=== PATIENT | female | born 1990 | race Caucasian/White ===

== ENCOUNTER 2016-11-20 08:05 | Outpatient (CLI) | payer OTHER | END 2016-11-20 08:40 | disposition home or self-care (01) | LOC: FBPOP 08:05 | PROVIDERS: ATTEND Obstetrics & Gynecology | DX: O62.2 Other uterine inertia (principal); Z3A.37 37 weeks gestation of pregnancy | CPT/HCPCS: 59025; G0463; 99213 ==

== ENCOUNTER 2016-11-20 19:18 | Outpatient (CLI) | payer OTHER ==
[2016-11-20 19:57] VITALS: BP 119/75; PULSE 90; RESP 16; TEMP 97; BMI 35.2
== END 2016-11-20 20:40 | disposition home or self-care (01) ==
LOC: FBPOP 19:18
PROVIDERS: ATTEND Obstetrics & Gynecology
DX: O62.2 Other uterine inertia (principal); Z3A.37 37 weeks gestation of pregnancy
CPT/HCPCS: 59025; G0463; 99213

== ENCOUNTER 2016-12-05 23:20 | Inpatient (IN) | payer OTHER ==
[2016-12-06] MEDS: LACTATED RINGERS 1,000 ML IV SCH ×3 (00:05→03:46)
[2016-12-06] MEDS ORDERED: TERBUTALINE 1 MG/ML VIAL SQ PRN (00:06)
[2016-12-06] MEDS ORDERED: LIDOCAINE 1% (PF) 10 MG/ML (30 ML SDV) SQ PRN (00:06)
[2016-12-06] MEDS ORDERED: METHYLERGONOVINE 0.2 MG/ML 1 ML AMP IM PRN (00:06)
[2016-12-06] MEDS ORDERED: CARBOPROST TROMETHAMINE 250 MCG/ML 1 ML AMP IM PRN (00:06)
[2016-12-06] MEDS ORDERED: OXYTOCIN 10 UNIT/ML 1 ML VIAL IM PRN (00:06)
[2016-12-06] MEDS ORDERED: BUTORPHANOL 1 MG/ML 1 ML VIAL IV PRN (00:08)
[2016-12-06 00:28] VITALS: BMI 35.5
[2016-12-06 00:35] LABS: Basophils % (A) 0 %; CH 31.1; CHCM 34.7; Eosinophils % (A) 0 %; HCT 38.5 % (34.0-46.0); HDW 2.92; HGB 12.7 gm/dL (11.4-16.0); Luc # (Auto) 0.13; Luc % (Auto) 1; Lymphocytes # (A) 2.8 k/uL (1.0-4.8); Lymphocytes % (A) 28 %; MCH 29.6 pg (25.0-35.0); MCHC 32.9 g/dL (31.0-37.0); Mean Platelet Volume 9.4; Monocytes # (A) 0.5 k/uL (0-1.0); Monocytes % (A) 5 %; Neutrophils # (A) 6.4 k/uL (1.3-7.7); Neutrophils % (A) 65 %; RBC 4.28 m/uL (3.80-5.40); RDW 13.9 % (11.5-15.5); WBC 9.9 k/uL (3.8-10.6); WBC (Perox) 10.44
[2016-12-06] MEDS ORDERED: BUPIVACAINE (PF) 0.25% 30 ML VIAL ONE (02:45)
[2016-12-06] MEDS ORDERED: fentaNYL (PF) 50 MCG/ML 5 ML AMP ONE (02:45)
[2016-12-06] MEDS ORDERED: SODIUM CHLORIDE 0.9% 100 ML BAG ONE (02:45)
[2016-12-06] MEDS ORDERED: BUPIVACAINE (PF) 0.25% 25 ML, fentaNYL (PF) 200 MCG in SODIUM CHLORIDE 0.9% 71 ML EPIDURAL ONE (03:03)
[2016-12-06] MEDS ORDERED: CITRIC ACID-SODIUM CITRATE 15 ML CUP PO ONE (03:22)
[2016-12-06] MEDS: OXYTOCIN 30 UNITS/500 ML NS 30 UNIT in SALINE 1 500ML.BAG IV SCH ×3 (03:26→20:35)
[2016-12-06] MEDS ORDERED: ONDANSETRON 4 MG/2 ML VIAL IVP PRN (07:08)
--- NOTE | 2016-12-06 07:09 | P.HPOB ---
History of Present Illness H&P Date: 12/06/16 This is a 26-year-old white female 3 para 2001 EDC 12/09/2016 at 39-4/7 weeks' gestation. Patient was initially scheduled for induction but presented through the night with strong regular uterine contractions. It was felt that she was in early labor and therefore she was admitted. She denied fluid leakage or vaginal bleeding. Fetus has been active throughout the . history: Blood type A positive, rubella status immune. Group B strep cultures negative. Gonorrhea and chlamydia cultures, HIV testing, urine culture , VDRL, hepatitis B surface antigen, HIV testing all negative. Rubella immune. Past medical history is significant for anxiety, bulging L4-L5 disc, and unspecified abdominal pain in multiple sites as of 2012. Past surgical history appendectomy 2008, diagnostic laparoscopy, foot surgery, hernia repair 2007, ovarian cystectomy 2012. ALLERGIES include amoxicillin to which reports hives, seasonal ALLERGIES as well. Family history significant for alcoholism and endometriosis as well as leukemia. Social history patient is not , she denies tobacco alcohol or drug use. On exam this is a pleasant white female, 5 foot 4 inches, 207 pounds, vital signs are stable and she is afebrile, admitting blood pressure 133/69. General physical exam is within normal limits. Cervix at time of this dictation is 4 cm dilated, 70-80% effaced, -2 station, vertex presentation, soft and anterior. Artificial amniorrhexis reveals clear fluid. heart tones in the 140s with frequent accelerations consistent with reactive NST. Impression: 39-4/7 weeks intrauterine , early spontaneous labor. Plan: Close maternal and surveillance. Oxytocin augmentation per hospital protocol. Anticipate normal spontaneous vaginal delivery. Review of Systems Negative except as in HPI Past Medical History Past Medical History: No Reported History History of Any Multi-Drug Resistant Organisms: None Reported Past Surgical History: Appendectomy, Hernia Repair Past Anesthesia/Blood Transfusion Reactions: No Reported Reaction Past Psychological History: Anxiety Smoking Status: Never smoker Past Alcohol Use History: None Reported Past Drug Use History: None Reported - Past Family History Mother Family Medical History: Liver Disease, Renal Disease Medications and Allergies Home Medications Medication Instructions Recorded Confirmed Type Pnv with Ca,No.72/Iron/FA 1 tab PO HS 10/26/16 12/05/16 History [ Plus Tablet] Allergies Allergy/AdvReac Type Severity Reaction Status Date / Time amoxicillin Allergy Rash/Hives Verified 12/05/16 23:25 Exam - Vital Signs Vital signs: Vital Signs Temp Pulse Resp BP Pulse Ox 12/06/16 00:06 96.7 F L 90 18 133/69 99 Intake and Output 12/05/16 12/06/16 12/06/16 22:59 06:59 14:59 Intake Total 1000 Output Total 200 Balance 800 Intake: Intake, IV Titration 1000 Amount Lactated Ringers 1,000 ml 1000 @ 125 mls/hr IV .Q8H [facility], [facility] Rx#:[id number] Output: Urine 200 Straight 200 Other: Weight 93.894 kg See dictation, please Results Result Diagrams: 12/06/16 00:00 Assessment and Plan Plan: Oxytocin augmentation per hospital protocol. Close maternal and surveillance. Anticipate normal spontaneous vaginal delivery. Time with Patient: Less than 30
[2016-12-06] MEDS ORDERED: BENZOCAINE/MENTHOL SPRAY 1 GM/SPRAY AEROSOL TOPICAL PRN (11:02)
[2016-12-06] MEDS ORDERED: diphenhydrAMINE 50 MG/ML 1 ML VIAL IVP PRN ×2 (11:02)
[2016-12-06] MEDS ORDERED: diphenhydrAMINE 25 MG CAP PO PRN (11:02)
[2016-12-06] MEDS ORDERED: diphenhydrAMINE ELIXIR 25 MG/10 ML CUP PO PRN (11:02)
[2016-12-06] MEDS ORDERED: WITCH HAZEL 1 EACH MED..PAD TOPICAL PRN (11:02)
[2016-12-06] MEDS ORDERED: diphenhydrAMINE 50 MG CAP PO PRN (11:02)
[2016-12-06] MEDS ORDERED: ZOLPIDEM 5 MG TAB PO PRN (11:02)
[2016-12-06] MEDS ORDERED: HYDROCORTISONE 2.5% RECTAL CREAM 30 GM TUBE RECTAL PRN (11:02)
[2016-12-06] MEDS ORDERED: SIMETHICONE 80 MG CHEWABLE PO PRN (11:02)
[2016-12-06] MEDS ORDERED: ACETAMINOPHEN TAB 325 MG TAB PO PRN (11:02)
[2016-12-06] MEDS ORDERED: LANOLIN CREAM 5 GM TUBE TOPICAL PRN (11:02)
--- NOTE | 2016-12-06 11:02 | P.PROBDLV ---
Vaginal Delivery Note - . Vaginal Delivery Note: This is a 26-year-old white female 3 para 2001 EDC 12/09/2016 at 39-4/7 weeks' gestation. Patient was initially scheduled for induction but presented to labor and delivery in early spontaneous active labor. Artificial amniorrhexis revealed clear fluid. Oxytocin augmentation was started and titrated per hospital protocol after the administration of an epidural per the patient request. was essentially unremarkable, group B strep cultures negative, blood type A+, rubella status immune. Urine physical for details. Patient progressed well through the first stage of labor was judged to be completely dilated with a strong urge to push. The perineal body was prepped and draped in usual sterile fashion. With excellent maternal expulsive efforts the head delivered occiput anterior and the fetus restituted accordingly. There was no nuchal cord noted. The left or anterior shoulder was gently delivered from underneath the pubic symphysis at which time the oropharynx, nasopharynx and external nares were all bulb suctioned on the perineal body. Patient was officially delivered of a liveborn female at 1048 hrs. Umbilical cord was doubly clamped and ligated, she was handed to waiting nurses for evaluation where scores of 9 and 9 at one and 5 minutes respectively were given. Spontaneously, it was inspected and noted to be intact with trivascular cord at 1050 hrs. Inspection of the cervix, vagina, perineum, periurethral, and perirectal areas revealed no lacerations and no defects. No suture material was needed. Fundus was firm and in the midline, symmetric and 18 week size upon completion of delivery. Total estimated blood loss 250 mL's. Infant weighed 6 lbs. 8 oz. or 2945 g. Patient and family were allowed to begin the bonding experience in the LDR. Complications: None.
[2016-12-06] MEDS: IBUPROFEN 600 MG TAB PO PRN (17:45)
[2016-12-06] MEDS: Acetaminophen-Codeine 300-30mg TAB PO PRN (19:36)
[2016-12-06] MEDS: SENNOSIDES-DOCUSATE SODIUM 1 EACH TAB PO SCH (19:37)
[2016-12-07] MEDS: IBUPROFEN 600 MG TAB PO PRN ×2 (00:05→08:25)
[2016-12-07] MEDS: Acetaminophen-Codeine 300-30mg TAB PO PRN (03:21)
--- NOTE | 2016-12-07 07:20 | P.DS ---
Providers Date of admission: 12/05/16 23:47 Expected date of discharge: 12/07/16 Attending physician: Kasey Leung Primary care physician[facility] Course: This is a 26-year-old white female 3 para 2002 EDC 12/09/2016 at 39-4/7 weeks' gestation. Patient presented in active spontaneous labor, unremarkable, group B strep cultures negative, rubella status immune, blood type A+. Please see my dictated history and physical for details. Artificial amniorrhexis revealed clear fluid. Epidural was placed per her request. She went on to deliver a liveborn female infant with scores of 9 and 9 at one and 5 minutes respectively. Infant weighed 2945 g or 6 lbs. 8 oz. Estimated blood loss was 250 mL's. Please see my dictated delivery note for details. This morning the patient is doing well. She is voiding, ambulating, passing flatus without difficulty. Vital signs are stable and she is afebrile. She is complaining of a sore area in her back where the epidural was placed along with a tingling pain sensation in the right foot. On examination the foot as well as the back appears within normal limits. There is no deficit to strength or balance. I discussed with her the inflammatory changes that can occur with an epidural placement, I have discussed this with the anesthesia staff as well who will see the patient for any further recommendations. At this time I am recommending ibuprofen products. Breasts are not engorged. Extremities are otherwise negative. Fundus is firm and in the midline, symmetric and 18 week size. Perineal body is intact. Minimal to moderate lochia rubra is appreciated. Patient is being discharged home this morning in good condition. She will follow-up with me in the office in 6 weeks. I have reminded her no intercourse, tampons or douching. We have discussed briefly her options for contraception and we will discuss this further in the office. She will continue taking her vitamin daily, and use Advil or Aleve [id number] as needed for pain. She may also use ibuprofen, 200 mg pills, 3 every 6 hours as needed. I've asked her to call me with any fevers shakes or chills, foul smelling or copious lochia, the passage of large blood clots, with any pain or issues not alleviated by over-the- counter products, or indeed with any other concerns. Patient Condition at Discharge: Good Plan - Discharge Summary Discharge Medication List Pnv with Ca,No.72/Iron/FA [ Plus Tablet] 1 tab PO HS 10/26/16 [History] Follow up Appointment(s)/Referral(s): Kasey Leung MD [Primary Care Provider] - 6 Weeks Discharge Disposition: HOME SELF-CARE
[2016-12-07 09:24] VITALS: BP 135/89; PULSE 74; RESP 20; TEMP 97.9
[2016-12-07] MEDS: SENNOSIDES-DOCUSATE SODIUM 1 EACH TAB PO SCH (09:28)
--- NOTE | 2016-12-07 10:15 | P.PN ---
Progress Note - Text Patient had an epidural for normal vaginal delivery 2 days ago and now she is complaining of slight back pain and it is radiating to right leg up to the toes. Patient does not report any weakness in the legs and is able to walk. This pain started since yesterday and it is 3-4 out of 10 in intensity and is better when she takes pain medications. On examination no neurological deficits found. Patient is able to walk and no muscle weakness noted. Impression: Probably transient radiculopathy from epidural catheter. Patient is reassured that the symptoms should subside within the next week or so. Meanwhile she was advised to take some nonsteroidal anti-inflammatory drugs like Motrin or Aleve for next 2-3 days. If symptoms get worse or she develops weakness she is advised to come back and see us.
== END 2016-12-07 15:15 | disposition home or self-care (01) | DRG 775 ==
LOC: FBPOP 23:20 → 4FBP 23:47
PROVIDERS: ADMIT Obstetrics & Gynecology; ATTEND Obstetrics & Gynecology
PROC: 10E0XZZ Delivery of Products of Conception, External Approach (ICD-10-PCS; principal; 2016-12-06)
PROC: 10907ZC Drainage of Amniotic Fluid, Therapeutic from Products of Conception, Via Natural or Artificial Opening (ICD-10-PCS; 2016-12-06)
PROC: 00HU33Z Insertion of Infusion Device into Spinal Canal, Percutaneous Approach (ICD-10-PCS; 2016-12-06)
DX: O99.344 Other mental disorders complicating childbirth (principal); F41.9 Anxiety disorder, unspecified; O99.89 Other specified diseases and conditions complicating pregnancy, childbirth and the puerperium; M51.26 Other intervertebral disc displacement, lumbar region; M54.10 Radiculopathy, site unspecified; J30.2 Other seasonal allergic rhinitis; T40.2X5A Adverse effect of other opioids, initial encounter; Z37.0 Single live birth; Z3A.39 39 weeks gestation of pregnancy; Y92.239 Unspecified place in hospital as the place of occurrence of the external cause
CPT/HCPCS: 59025; 85025; 88307; 99213

== ENCOUNTER → 2018-08-22 | Outpatient (CLI) | payer OTHER ==
--- NOTE | 2018-08-22 17:15 | MR ---
MR left foot HISTORY: Trauma, pain Multiplanar multisequence imaging obtained through the left foot. Plain films unavailable for correlation. There is no bone marrow signal abnormality suggesting bone contusion. Joint spaces and alignment are maintained. Small ankle joint effusion is present. Achilles tendon, plantar aponeurosis are intact. A rticular cartilage signal is maintained. Flexor and extensor tendons are intact. The level of the proximal fifth metatarsal there is some local fluid signal present. The peroneus eliz vis insertion show some increase signal and thickening. Peroneal longus tendon shows fluid signal at the level of its insertion which could be due to small ganglion cyst or partial tear. IMPRESSION: Findings suggest partial tear, tendinosis at the insertion of the peroneal brevis tendon. Findings at the level of the insertion of the peroneal longus tendon could be due to ganglion cyst o r partial tear.
== END | disposition home or self-care (01) ==
LOC: RADMRIMAIN 11:15
PROVIDERS: ATTEND Pediatrics
DX: M79.672 Pain in left foot (principal)

== ENCOUNTER → 2018-09-09 | Outpatient (CLI) | payer OTHER | END | disposition home or self-care (01) | LOC: RADUSWWP 08:56 | PROVIDERS: ATTEND Podiatrist | DX: Z53.9 Procedure and treatment not carried out, unspecified reason (principal) ==

== ENCOUNTER → 2018-09-24 | Outpatient (CLI) | payer OTHER ==
[2018-09-24 11:25] LABS: HCT 41.7 % (34.0-46.0); HGB 13.6 gm/dL (11.4-16.0); MCH 29.4 pg (25.0-35.0); MCHC 32.6 g/dL (31.0-37.0); MCV 90.2 fL (80.0-100.0); Mean Platelet Volume 7.6; Platelet Count 217 k/uL (150-450); RBC 4.63 m/uL (3.80-5.40); RDW 12.3 % (11.5-15.5); WBC 4.2 k/uL (3.8-10.6)
[2018-09-24 12:33] LABS: Erythrocyte Sedimentation Rate 3 mm/hr (0-20)
[2018-09-24 17:58] LABS: Rheumatoid Factor <4 IU/mL (0-15); Streptolysin O Ab(ASO) 269 IU/mL (0-200)
[2018-09-24 18:14] LABS: C Reactive Protein <0.4 mg/dL (0.0-0.8)
[2018-09-25 11:06] LABS: HLA B27 NEGATIVE
== END | disposition home or self-care (01) ==
LOC: LABWHC1 10:26
PROVIDERS: ATTEND Orthopaedic Surgery
DX: M76.72 Peroneal tendinitis, left leg (principal); M25.572 Pain in left ankle and joints of left foot
CPT/HCPCS: 36415; 84443; 85027; 85652; 86038; 86060; 86140; 86431; 86618; 86812

== ENCOUNTER → 2019-01-28 | Outpatient (CLI) | payer OTHER ==
--- NOTE | 2019-01-28 14:26 | CT ---
EXAMINATION TYPE: CT chest wo con DATE OF EXAM: 01/28/2019 COMPARISON: None HISTORY: Shortness of breath CT DLP: 483 mGycm. Automated Exposure Control for Dose Reduction was Utilized. TECHNIQUE: CT scan of the thorax is performed without IV contrast. FINDINGS: LUNGS: The lungs are grossly clear, there is no concerning parenchymal mass or nodule identified. T here is no pleural effusion or pneumothorax seen. The tracheobronchial tree is patent. Calcified nod ule left upper lobe likely related to tiny granuloma. Axial image 33 there is a vague 4 mm nodule. MEDIASTINUM: Lack of IV contrast is noted to limit evaluation for mediastinal and especially hilar ad enopathy. There are no definitive greater than 1 cm hilar or mediastinal lymph nodes. No cardiomega ly or pericardial effusion is seen. OTHER: Curvature of the spine noted. Osseous structures intact. IMPRESSION: 1. No evidence of acute process. There is a 4 mm nodule within the right lower lobe which is vague an d likely benign. Suspect additional calcified nodule in the left lung. Recommend 6 month follow-up CT to confirm stability.
== END | disposition home or self-care (01) ==
LOC: RADCTMAIN 13:32
PROVIDERS: ATTEND Pediatrics
DX: R91.1 Solitary pulmonary nodule (principal)
CPT/HCPCS: 71250

== ENCOUNTER → 2019-03-11 | Outpatient (CLI) | payer OTHER | END | disposition home or self-care (01) | LOC: CPPFTMAIN 13:31 | PROVIDERS: ATTEND Pediatrics | DX: R06.02 Shortness of breath (principal) | CPT/HCPCS: 94060; 94726; 94729 ==

== ENCOUNTER → 2019-04-18 | Outpatient (CLI) | payer OTHER ==
[2019-04-18 19:39] LABS: Cat Epith & Dander IgE <0.10 kU/L; Dermato. farinae IgE <0.10 kU/L
[2019-04-18 19:40] LABS: Dog Dander IgE <0.10 kU/L
[2019-04-18 19:41] LABS: Alternaria alternata IgE <0.10 kU/L; Birch IgE <0.10 kU/L; Cockroach IgE <0.10 kU/L; Elm IgE <0.10 kU/L; Maple (Box Elder) IgE <0.10 kU/L; Oak IgE <0.10 kU/L
[2019-04-18 19:42] LABS: Ragweed,Common IgE <0.10 kU/L
[2019-04-18 19:44] LABS: Egg White IgE <0.10 kU/L; Red Top (Bentgrass) IgE <0.10 kU/L
[2019-04-18 19:49] LABS: Codfish IgE <0.10 kU/L
[2019-04-18 19:50] LABS: Peanut IgE <0.10 kU/L; Shrimp IgE <0.10 kU/L; Soybean IgE <0.10 kU/L
[2019-04-18 19:52] LABS: Clam IgE <0.10 kU/L; Scallop IgE <0.10 kU/L; Walnut IgE (Food) <0.10 kU/L
[2019-04-18 20:05] LABS: Immunoglobulin E 5.19 IU/mL (0.00-114.00); Immunoglobulin E 5.65 IU/mL (0.00-114.00)
== END ==
LOC: LABWHC1 12:17
PROVIDERS: ATTEND Internal Medicine Critical Care Medicine
DX: R06.00 Dyspnea, unspecified (principal); R05 Cough; R07.89 Other chest pain
CPT/HCPCS: 36415; 82785; 86003

== ENCOUNTER → 2019-06-30 | Outpatient (CLI) | payer OTHER ==
--- NOTE | 2019-06-30 08:47 | US ---
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 Bruising easily EXAM MEASUREMENTS: Liver Length: 13.8 cm Gallbladder Wall: 0.1 cm CBD: 0.4 cm Spleen: 10.9 cm Right Kidney: 9.6 x 4.8 x 4.5 cm Left Kidney: 10.3 x 5.1 x 4.2 cm Pancreas: Tail obscured by overlying bowel gas, visualized portions wnl Liver: wnl Gallbladder: wnl Evidence for sonographic Hernandez's sign: No CBD: wnl Spleen: wnl Right Kidney: No hydronephrosis or masses seen Left Kidney: No hydronephrosis or masses seen Upper IVC: wnl Abd Aorta: wnl The liver is homogenous. The intrahepatic portion of the IVC and proximal abdominal aorta are within normal limits. There is no evidence of cholelithiasis. Common bile duct is unremarkable. The visu alized portions of the pancreas are homogenous. The spleen is unremarkable. Kidneys are symmetric a nd free of hydronephrosis. No renal lesions are seen. IMPRESSION: No distinct abnormality appreciated.
== END | disposition home or self-care (01) ==
LOC: RADUSWWP 08:10
PROVIDERS: ATTEND Pediatrics
DX: D69.3 Immune thrombocytopenic purpura (principal)
CPT/HCPCS: 76700

== ENCOUNTER → 2019-08-19 | Outpatient (CLI) | payer OTHER ==
--- NOTE | 2019-08-19 10:54 | XR ---
EXAMINATION TYPE: XR tibia fibula LT DATE OF EXAM: 08/19/2019 COMPARISON: None HISTORY: Swelling of lower extremity TECHNIQUE: Left tibia and fibula is examined in 2 projections FINDINGS: No acute fractures are evident. Soft tissues are normal. Joint spaces appear preserved. Follow-up exams can be performed 7-10 days from acute trauma for continued pain. IMPRESSION: 1. Normal 2 view left tibia and fibula
== END | disposition home or self-care (01) ==
LOC: RADXRMAIN 10:04
PROVIDERS: ATTEND Internal Medicine Critical Care Medicine
DX: R22.42 Localized swelling, mass and lump, left lower limb (principal)

== ENCOUNTER → 2019-08-19 | Outpatient (CLI) | payer OTHER ==
--- NOTE | 2019-08-19 11:32 | US ---
EXAMINATION TYPE: US venous doppler duplex LE LT DATE OF EXAM: 08/19/2019 10:39 AM COMPARISON: NONE CLINICAL HISTORY: R22.42 Localized swelling, mass and lump. Lump edema SIDE PERFORMED: Left TECHNIQUE: The lower extremity deep venous system is examined utilizing real time linear array sonog amadeo with graded compression, doppler sonography and color-flow sonography. VESSELS IMAGED: External Iliac Vein (EIV) Common Femoral Vein Deep Femoral Vein Greater Saphenous Vein * Femoral Vein Popliteal Vein Small Saphenous Vein * Proximal Calf Veins (* superficial vessels Left Leg: Negative for DVT IMPRESSION: 1. Left lower extremity ultrasound negative for deep venous thrombosis.
== END | disposition home or self-care (01) ==
LOC: RADUSWWP 10:37
PROVIDERS: ATTEND Internal Medicine Critical Care Medicine
DX: R22.42 Localized swelling, mass and lump, left lower limb (principal); Z88.0 Allergy status to penicillin

== ENCOUNTER 2019-10-29 21:14 | Emergency (ER) | payer OTHER ==
[2019-10-29 21:27] VITALS: BP 130/75; PULSE 90; RESP 18; TEMP 98.5
[2019-10-29] MEDS ORDERED: MUPIROCIN 2% OINT 22 GM TUBE TOPICAL STA (22:00)
[2019-10-29] MEDS ORDERED: ACET/COD 300 MG/30 MG STARTER PACK 6 TAB BTL PO STA (22:00)
[2019-10-29] MEDS ORDERED: IBUPROFEN 600 MG STARTER PACK 4 TAB BTL PO STA (22:00)
--- NOTE | 2019-10-29 22:03 | ED ---
Skin/Abscess/FB HPI - General Chief complaint: Skin/Abscess/Foreign Body Stated complaint: L Arm swelling Time Seen by Provider: 10/29/19 21:28 Source: patient Mode of arrival: ambulatory Limitations: no limitations - History of Present Illness Initial comments: 29-year-old female patient presents to the emergency department today for evaluation of swelling, pain, and redness over new tattoo. Patient states that she get the tattoo 3 days ago. States her last couple days she has developed a rash and redness surrounding the tattoo. Patient states the area is painful. Denies fevers but states she has been chilled. She has been taking Tylenol Motrin. She states she was started on Bactrim and Keflex by her primary care physician yesterday. States she has taken 3 doses so far. Patient was instructed to present to the emergency department if the redness extended past the line drawn by her physician. Patient states that the redness did go pass by approximately 1 inch. Denies any history of similar symptoms. Patient denies any recent rash, shortness breath, chest pain, abdominal pain, nausea, vomiting, diarrhea, constipation, back pain, numbness, tingling, dizziness, weakness, hematuria, dysuria, urinary urgency, urinary frequency, headache, visual changes, or any other complaints. - Related Data Home Medications Medication Instructions Recorded Confirmed Pnv,Calcium 72/Iron/Folic Acid 1 tab PO HS 10/26/16 12/05/16 [ Plus Tablet] Previous Rx's Medication Instructions Recorded Ibuprofen [Motrin] 600 mg PO Q8HR PRN #30 tab 10/29/19 Allergies Allergy/AdvReac Type Severity Reaction Status Date / Time amoxicillin Allergy Rash/Hives Verified 12/05/16 23:25 Review of Systems ROS Statement: Those systems with pertinent positive or pertinent negative responses have been documented in the HPI. ROS Other: All systems not noted in ROS Statement are negative. Past Medical History Past Medical History: No Reported History History of Any Multi-Drug Resistant Organisms: None Reported Past Surgical History: Appendectomy, Hernia Repair Past Anesthesia/Blood Transfusion Reactions: No Reported Reaction Past Psychological History: Anxiety Smoking Status: Never smoker Past Alcohol Use History: None Reported Past Drug Use History: None Reported - Past Family History Mother Family Medical History: Liver Disease, Renal Disease General Exam Limitations: no limitations General appearance: alert, in no apparent distress, other (This is a well- developed, well-nourished adult female patient in no acute distress. Vital signs upon presentation are temperature 98.5F, pulse 90, respirations 18, blood pressure 130/75, pulse ox 98% on room air.) Eye exam: Present: normal appearance, PERRL, EOMI. Absent: scleral icterus, conjunctival injection, periorbital swelling ENT exam: Present: normal exam, normal oropharynx, mucous membranes moist Respiratory exam: Present: normal lung sounds bilaterally. Absent: respiratory distress, wheezes, rales, rhonchi, stridor Cardiovascular Exam: Present: regular rate, normal rhythm, normal heart sounds. Absent: systolic murmur, diastolic murmur, rubs, gallop, clicks GI/Abdominal exam: Present: soft, normal bowel sounds. Absent: distended, tenderness, guarding, rebound, rigid Extremities exam: Present: full ROM, normal capillary refill, other (Tattoo to the left volar forearm, surrounding erythema, surrounding rash with small vesicles consistent with contact dermatitis. ). Absent: tenderness, pedal edema, joint swelling, calf tenderness Neurological exam: Present: alert, oriented X3, CN II-XII intact Psychiatric exam: Present: normal affect, normal mood Skin exam: Present: warm, dry, intact, normal color. Absent: rash Course Vital Signs 10/29/19 21:24 Temperature 98.5 F Pulse Rate 90 Respiratory 18 Rate Blood Pressure 130/75 O2 Sat by Pulse 98 Oximetry Medical Decision Making - Medical Decision Making 29-year-old female patient presents to the emergency department today for evaluation of pain, swelling, redness to the left forearm over a tattoo area. Physical examination does reveal surrounding erythema consistent with cellulitis, surrounding rash consistent with contact dermatitis. She started taking Keflex and Bactrim, she is urged to continue this. She is also taking steroids she is instructed to continue this as well. She'll be given Bactroban ointment to apply. She is instructed to alternate Tylenol Motrin for fever control. Return parameters were discussed in detail. She verbalizes unde rstanding and agrees with this plan. Disposition Clinical Impression: Left arm cellulitis, Contact dermatitis Disposition: HOME SELF-CARE Condition: Good Instructions (If sedation given, give patient instructions): Contact Dermatitis (ED), Cellulitis (ED) Additional Instructions: Complete antibiotics and steroids as directed. Take medication as directed. Follow up with your primary care physician for recheck in 1-2 days. Return to the emergency department for any new, worsening, or concerning symptoms. Prescriptions: Ibuprofen [Motrin] 600 mg PO Q8HR PRN #30 tab PRN Reason: Pain Is patient prescribed a controlled substance at d/c from ED?: No Referrals: Raghavendra Saunders MD [Primary Care Provider] - 1-2 days Time of Disposition: 22:03
== END 2019-10-29 22:24 | disposition home or self-care (01) ==
LOC: EC 21:14
DX: L03.114 Cellulitis of left upper limb (principal); Z88.0 Allergy status to penicillin
CPT/HCPCS: 99283

== ENCOUNTER → 2020-05-31 | Outpatient (CLI) | payer OTHER | END | disposition home or self-care (01) | LOC: LABWHC1 07:35 | PROVIDERS: ATTEND Pediatrics | DX: Z20.828 Contact with and (suspected) exposure to other viral communicable diseases (principal) | CPT/HCPCS: U0003; C9803 ==

== ENCOUNTER → 2020-08-04 | Outpatient (CLI) | payer OTHER | END | disposition home or self-care (01) | LOC: LABWHC1 09:26 | PROVIDERS: ATTEND Pediatrics | DX: Z20.828 Contact with and (suspected) exposure to other viral communicable diseases (principal) | CPT/HCPCS: U0003; C9803 ==

== ENCOUNTER 2020-08-27 22:21 | Emergency (ER) | payer OTHER ==
[2020-08-27 22:43] VITALS: RESP 18
--- NOTE | 2020-08-27 23:24 | XR ---
EXAMINATION TYPE: XR ankle complete LT DATE OF EXAM: 08/27/2020 COMPARISON: NONE HISTORY: Foot pain TECHNIQUE: 3 views FINDINGS: Ankle mortise is anatomic. I see no fracture nor dislocation. Joint spaces are normal. IMPRESSION: Negative left ankle exam.
--- NOTE | 2020-08-27 23:27 | XR ---
EXAMINATION TYPE: XR foot complete LT DATE OF EXAM: 08/27/2020 COMPARISON: NONE HISTORY: Foot pain TECHNIQUE: 3 views FINDINGS: Metatarsals are intact. I see no fracture nor dislocation. Joint spaces appear normal. Ther e is mild soft tissue swelling on the dorsum of the foot. IMPRESSION: Soft tissue swelling. No fracture seen.
--- NOTE | 2020-08-27 23:37 | ED ---
Lower Extremity Injury HPI - General Chief Complaint: Extremity Injury, Lower Stated Complaint: R Foot Pain Time Seen by Provider: 08/27/20 22:51 Source: patient Mode of arrival: ambulatory Limitations: no limitations - History of Present Illness Initial Comments: This is a previously healthy 30-year-old female presents to ER today for evaluation of left foot pain. Patient reports that there was a swing hanging, it fell, she fell to the ground her foot twisted under her in the swing fell onto a. Her foot inverted and the swing hit the medial surface of her foot. Patient reports she's noticed some pain and swelling to her foot since then. She has bruising and pain on the medial surface and swelling and pain on the lateral surface. Denies other injuries. Denies hitting her head or loss of consciousness. No history of injury or surgery to this foot in the past. - Related Data Home Medications Medication Instructions Recorded Confirmed Pnv,Calcium 72/Iron/Folic Acid 1 tab PO HS 10/26/16 12/05/16 [ Plus Tablet] Previous Rx's Medication Instructions Recorded Ibuprofen [Motrin] 600 mg PO Q8HR PRN #30 tab 10/29/19 Allergies Allergy/AdvReac Type Severity Reaction Status Date / Time amoxicillin Allergy Rash/Hives Verified 08/27/20 22:43 Review of Systems ROS Statement: Those systems with pertinent positive or pertinent negative responses have been documented in the HPI. ROS Other: All systems not noted in ROS Statement are negative. Past Medical History Past Medical History: No Reported History History of Any Multi-Drug Resistant Organisms: None Reported Past Surgical History: Appendectomy, Hernia Repair Past Anesthesia/Blood Transfusion Reactions: No Reported Reaction Past Psychological History: Anxiety Smoking Status: Never smoker Past Alcohol Use History: None Reported Past Drug Use History: None Reported - Past Family History Mother Family Medical History: Liver Disease, Renal Disease General Exam - General Exam Comments Initial Comments: Physical Exam GENERAL: Patient is well-developed and well-nourished. Patient is nontoxic and well-hydrated and is in no distress. HENT: Normocephalic, Atraumatic. EYES: PERRL, EOMI PULMONARY: Unlabored respirations. CARDIOVASCULAR: RRR Warm and well perfused extremities ABDOMEN: Non-distended SKIN: No rashes or bruising : Deferred NEUROLOGIC: Alert and oriented Normal speech Normal gait MUSCULOSKELETAL: Moving all extremities Left foot bruising and swelling over ATF ligament PSYCHIATRIC: No SI/HI Limitations: no limitations Course Vital Signs 08/27/20 08/28/20 22:39 00:06 Temperature 98 F 98.7 F Pulse Rate 105 H 97 Respiratory 18 18 Rate Blood Pressure 128/76 125/84 O2 Sat by Pulse 97 95 Oximetry Medical Decision Making - Medical Decision Making The patient was seen and evaluated, history is obtained from the patient X-rays of the foot and ankle were obtained and resulted with no acute findings. Results were discussed the patient, advised the patient she likely has a mild ankle sprain as well as contusion to the foot. Patient's comfortable with the plan for supportive care, rest, ice, compression and elevation. The foot was placed in Donell wrap and the patient was discharged home in stable condition. I did discuss with patient possibility of very small fractures being missed on initial x-rays, advised that she has persistent pain after 1 week to have repeat imaging performed. Patient's breast understanding of this. Disposition Clinical Impression: Left ankle sprain Disposition: HOME SELF-CARE Condition: Stable Instructions (If sedation given, give patient instructions): Ankle Sprain (ED) Is patient prescribed a controlled substance at d/c from ED?: No Referrals: Raghavendra Saunders MD [Primary Care Provider] - 1-2 days
[2020-08-28 00:08] VITALS: BP 125/84; PULSE 97; TEMP 98.7
== END 2020-08-28 00:07 | disposition home or self-care (01) ==
LOC: EC 22:21
DX: S93.402A Sprain of unspecified ligament of left ankle, initial encounter (principal); S90.32XA Contusion of left foot, initial encounter; Z88.0 Allergy status to penicillin; W20.8XXA Other cause of strike by thrown, projected or falling object, initial encounter; Y92.89 Other specified places as the place of occurrence of the external cause
CPT/HCPCS: 99283

== ENCOUNTER 2020-09-12 21:49 | Emergency (ER) | payer OTHER ==
[2020-09-12 21:57] VITALS: TEMP 98.7
--- NOTE | 2020-09-12 22:16 | ED ---
General Adult HPI - General Chief complaint: Recheck/Abnormal Lab/Rx Stated complaint: Retaining water, seeing black spots Time Seen by Provider: 09/12/20 22:01 Source: patient, RN notes reviewed, old records reviewed, Caregiver Mode of arrival: ambulatory Limitations: no limitations - History of Present Illness Initial comments: 30-year-old female presents emergency department today for evaluation for multiple complaints. She states that for the past 3 days she feels that she is retaining water in her lower extremities and breasts and feels that she had a bi-increased brought size. She also stated that today she saw black spots in her vision does seem to be transient. Patient reports that she has no eye pain. She does not wear glasses. She denies headache or chest pain. She states that her last menstrual period was July 24. - Related Data Home Medications Medication Instructions Recorded Confirmed Venlafaxine HCl ER [Effexor Xr] 150 mg PO HS 09/12/20 09/12/20 Previous Rx's Medication Instructions Recorded Hydrochlorothiazide 12.5 mg PO DAILY #7 capsule 09/12/20 [hydroCHLOROthiazide] Allergies Allergy/AdvReac Type Severity Reaction Status Date / Time amoxicillin Allergy Rash/Hives/Shortness Verified 09/12/20 22:51 of Breath Review of Systems ROS Statement: Those systems with pertinent positive or pertinent negative responses have been documented in the HPI. ROS Other: All systems not noted in ROS Statement are negative. Past Medical History Past Medical History: No Reported History Additional Past Medical History / Comment(s): obarian cyst History of Any Multi-Drug Resistant Organisms: None Reported Past Surgical History: Appendectomy, Hernia Repair, Orthopedic Surgery Additional Past Surgical History / Comment(s): rt ankle Past Anesthesia/Blood Transfusion Reactions: No Reported Reaction Past Psychological History: Anxiety Smoking Status: Never smoker Past Alcohol Use History: None Reported Past Drug Use History: None Reported - Past Family History Mother Family Medical History: Liver Disease, Renal Disease General Exam - General Exam Comments Initial Comments: This is a 30-year-old female. No distress Limitations: no limitations General appearance: alert, in no apparent distress Head exam: Present: atraumatic, normocephalic, normal inspection Eye exam: Present: normal appearance (a), PERRL, EOMI, other (jocular pressure bilaterally was 12 on the left and 13 on the right. No signs of retinal detachment on opthalmic exam. In no pain with extraocular eye movements.). Absent: scleral icterus, conjunctival injection, periorbital swelling ENT exam: Present: normal exam, mucous membranes moist Neck exam: Present: normal inspection. Absent: tenderness, meningismus, lymphad enopathy Respiratory exam: Present: normal lung sounds bilaterally. Absent: respiratory distress, wheezes, rales, rhonchi, stridor Cardiovascular Exam: Present: regular rate, normal rhythm, normal heart sounds. Absent: systolic murmur, diastolic murmur, rubs, gallop, clicks GI/Abdominal exam: Present: soft, normal bowel sounds. Absent: distended, tenderness, guarding, rebound, rigid Extremities exam: Present: normal inspection, full ROM, normal capillary refill, other ( had minimal less than 1+ pitting edema on bilateral shins. Normal pulses bilaterally. No erythema or calf Tenderness.). Absent: tenderness, pedal edema, joint swelling, calf tenderness Back exam: Present: normal inspection Neurological exam: Present: alert, oriented X3, CN II-XII intact Psychiatric exam: Present: normal affect, normal mood Skin exam: Present: warm, dry, intact, normal color. 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 Also complaining of transient black spots in bilateral eyes. She reports that they seem to come and go. She has no sign of extraocular eye movement pain. No erythema or conjunctival injection. Patient's visual acuities is 20/20 on the left at 2040 on the right. She does not wear glasses or contacts. Patient had extensive evaluation blood work was reviewed including BNP and chemistry panels which are unremarkable for lower extremity swelling. She has no calf tenderness concern for DVTs. Patient explained that she needs to wear compression stockings for the lower external swelling and to decrease salt intake. Discussed the Patient on a short course of head or thighs and she was previously on this and to follow-up with her primary care doctor in regards to the persistent leg swelling. Patient also advised follow-up with ophthalmology regards to transient black spots in her vision. Discussed if this was a central cause for she will changes the black spots would be be persistent and not transient. Patient is agreeable to this plan to follow up with OPHTHALMOLOGY and primary care doctor. - Lab Data Result diagrams: 09/12/20 22:11 09/12/20 22:11 Lab Results 09/12/20 09/12/20 09/12/20 Range/Units 22:11 22:11 22:11 WBC 6.1 (3.8-10.6) k/uL RBC 4.54 (3.80-5.40) m/uL Hgb 14.0 (11.4-16.0) gm/dL Hct 42.1 (34.0-46.0) % MCV 92.8 (80.0-100.0) fL MCH 30.8 (25.0-35.0) pg MCHC 33.2 (31.0-37.0) g/dL RDW 12.0 (11.5-15.5) % Plt Count 211 (150-450) k/uL Neutrophils % 53 % Lymphocytes % 36 % Monocytes % 5 % Eosinophils % 2 % Basophils % 3 % Neutrophils # 3.3 (1.3-7.7) k/uL Lymphocytes # 2.2 (1.0-4.8) k/uL Monocytes # 0.3 (0-1.0) k/uL Eosinophils # 0.1 (0-0.7) k/uL Basophils # 0.2 (0-0.2) k/uL PT 10.1 (9.0-12.0) sec INR 1.0 (<1.2) APTT 25.2 (22.0-30.0) sec Sodium (137-145) mmol/L Potassium (3.5-5.1) mmol/L Chloride (98-107) mmol/L Carbon Dioxide (22-30) mmol/L Anion Gap mmol/L BUN (7-17) mg/dL Creatinine (0.52-1.04) mg/dL Est GFR (CKD-EPI)AfAm (>60 ml/min/1.73 sqM) Est GFR (CKD-EPI)NonAf (>60 ml/min/1.73 sqM) Glucose (74-99) mg/dL Calcium (8.4-10.2) mg/dL Magnesium (1.6-2.3) mg/dL Total Bilirubin (0.2-1.3) mg/dL AST (14-36) U/L ALT (4-34) U/L Alkaline Phosphatase (38-126) U/L NT-Pro-B Natriuret Pep pg/mL Total Protein (6.3-8.2) g/dL Albumin (3.5-5.0) g/dL HCG, Quant mIU/mL Urine Color Light Yellow Urine Appearance Clear (Clear) Urine pH 7.5 (5.0-8.0) Ur Specific [place] 1.020 (1.001-1.035) Urine Protein Negative (Negative) Urine Glucose (UA) Negative (Negative) Urine Ketones Negative (Negative) Urine Blood Negative (Negative) Urine Nitrite Negative (Negative) Urine Bilirubin Negative (Negative) Urine Urobilinogen <2.0 (<2.0) mg/dL Ur Leukocyte Esterase Negative (Negative) Urine HCG, Qual (Not Detectd) 09/12/20 09/12/20 09/12/20 Range/Units 22:11 22:12 22:12 WBC (3.8-10.6) k/uL RBC (3.80-5.40) m/uL Hgb (11.4-16.0) gm/dL Hct (34.0-46.0) % MCV (80.0-100.0) fL MCH (25.0-35.0) pg MCHC (31.0-37.0) g/dL RDW (11.5-15.5) % Plt Count (150-450) k/uL Neutrophils % % Lymphocytes % % Monocytes % % Eosinophils % % Basophils % % Neutrophils # (1.3-7.7) k/uL Lymphocytes # (1.0-4.8) k/uL Monocytes # (0-1.0) k/uL Eosinophils # (0-0.7) k/uL Basophils # (0-0.2) k/uL PT (9.0-12.0) sec INR (<1.2) APTT (22.0-30.0) sec Sodium 136 L (137-145) mmol/L Potassium 4.0 (3.5-5.1) mmol/L Chloride 105 (98-107) mmol/L Carbon Dioxide 27 (22-30) mmol/L Anion Gap 4 mmol/L BUN 16 (7-17) mg/dL Creatinine 0.67 (0.52-1.04) mg/dL Est GFR (CKD-EPI)AfAm >90 (>60 ml/min/1.73 sqM) Est GFR (CKD-EPI)NonAf >90 (>60 ml/min/1.73 sqM) Glucose 89 (74-99) mg/dL Calcium 8.9 (8.4-10.2) mg/dL Magnesium 2.1 (1.6-2.3) mg/dL Total Bilirubin 0.4 (0.2-1.3) mg/dL AST 17 (14-36) U/L ALT 12 (4-34) U/L Alkaline Phosphatase 48 (38-126) U/L NT-Pro-B Natriuret Pep 47 pg/mL Total Protein 6.6 (6.3-8.2) g/dL Albumin 3.9 (3.5-5.0) g/dL HCG, Quant <2.4 mIU/mL Urine Color Urine Appearance (Clear) Urine pH (5.0-8.0) Ur Specific [place] (1.001-1.035) Urine Protein (Negative) Urine Glucose (UA) (Negative) Urine Ketones (Negative) Urine Blood (Negative) Urine Nitrite (Negative) Urine Bilirubin (Negative) Urine Urobilinogen (<2.0) mg/dL Ur Leukocyte Esterase (Negative) Urine HCG, Qual Not Detected (Not Detectd) 09/12/20 22:40 EKG shows normal sinus rhythm with normal EKG. Ventricular rate of 91 bpm. Pulse 140 ms. QS Patient is a 80 ms. QT QTc is 336 milliseconds/413 ms. Disposition Clinical Impression: Lower leg edema, Transient vision disturbance Disposition: HOME SELF-CARE Condition: Good Instructions (If sedation given, give patient instructions): Leg Edema (ED) Additional Instructions: Follow-up with ophthalmology and PCP for reevaluation in regards to leg swelling. Return to ED if any alarming signs or symptoms occur. Prescriptions: Hydrochlorothiazide [hydroCHLOROthiazide] 12.5 mg PO DAILY #7 capsule Is patient prescribed a controlled substance at d/c from ED?: No Referrals: Raghavendra Saunders MD [Primary Care Provider] - 1-2 days Guero Mckenna MD [STAFF PHYSICIAN] - 1-2 days Time of Disposition: 23:48
[2020-09-12 22:35] LABS: Appearance,Urine Clear (Clear); Bilirubin,Urine Negative (Negative); Blood,Urine Negative (Negative); Color,Urine Light Yellow; Glucose,Urine (UA) Negative (Negative); Ketones,Urine Negative (Negative); Leukocyte Esterase,Urine Negative (Negative); Nitrite,Urine Negative (Negative); PH, Urine 7.5 (5.0-8.0); Protein,Urine Negative (Negative); Urobilinogen,Urine <2.0 mg/dL (<2.0)
[2020-09-12 22:41] LABS: Basophils # (A) 0.2 k/uL (0-0.2); Basophils % (A) 3 %; Eosinophils # (A) 0.1 k/uL (0-0.7); Eosinophils % (A) 2 %; HCT 42.1 % (34.0-46.0); Lymphocytes # (A) 2.2 k/uL (1.0-4.8); Lymphocytes % (A) 36 %; MCH 30.8 pg (25.0-35.0); MCHC 33.2 g/dL (31.0-37.0); MCV 92.8 fL (80.0-100.0); Mean Platelet Volume 7.9; Monocytes # (A) 0.3 k/uL (0-1.0); Monocytes % (A) 5 %; Neutrophils # (A) 3.3 k/uL (1.3-7.7); Neutrophils % (A) 53 %; Platelet Count 211 k/uL (150-450); RBC 4.54 m/uL (3.80-5.40); WBC 6.1 k/uL (3.8-10.6)
[2020-09-12 22:44] LABS: Partial Thromboplastin Time 25.2 sec (22.0-30.0); Prothrombin Time 10.1 sec (9.0-12.0)
[2020-09-12 22:47] LABS: ALT 12 U/L (4-34); AST 17 U/L (14-36); African American GFR (CKD) >90 (>60 ml/min/1.73 sqM); Albumin 3.9 g/dL (3.5-5.0); Alkaline Phosphatase 48 U/L (38-126); Anion Gap 4 mmol/L; Blood Urea Nitrogen 16 mg/dL (7-17); Calcium 8.9 mg/dL (8.4-10.2); Carbon Dioxide 27 mmol/L (22-30); Chloride 105 mmol/L (98-107); Glucose 89 mg/dL (74-99); Magnesium 2.1 mg/dL (1.6-2.3); Non-African American GFR(CKD) >90 (>60 ml/min/1.73 sqM); Sodium 136 mmol/L (137-145); Total Bilirubin 0.4 mg/dL (0.2-1.3); Total Protein 6.6 g/dL (6.3-8.2)
[2020-09-12 23:03] LABS: HCG,Quantitative Serum <2.4 mIU/mL
[2020-09-13 00:05] VITALS: BP 128/88; PULSE 98; RESP 16
== END 2020-09-13 00:09 | disposition home or self-care (01) ==
LOC: EC 21:49
DX: R60.0 Localized edema (principal); H53.9 Unspecified visual disturbance; F41.9 Anxiety disorder, unspecified; Z79.899 Other long term (current) drug therapy; Z88.0 Allergy status to penicillin
CPT/HCPCS: 36415; 80053; 81003; 81025; 83735; 83880; 84702; 85025; 85610; 85730; 93005; 99283

== ENCOUNTER → 2021-01-21 | Outpatient (CLI) | payer OTHER ==
--- NOTE | 2021-01-24 10:26 | MM ---
Reason for exam: clinical finding. Baseline mammogram. History: Family history of breast cancer in maternal grandmother at age 72 and breast cancer in maternal aunt at age 50. Physical Findings: Nurse did not find any significant physical abnormalities on exam. MG 3D Diag Mammo W/Cad LISA Bilateral CC and MLO view(s) were taken. The breast tissue is heterogeneously dense. This may lower the sensitivity of mammography. Finding: There is a typically benign high density, circumscribed lobulated mass located 8 cm from the nipple in the 10 o'clock upper outer quadrant, posterior position of the right breast. These results were verbally communicated with the patient and result sheet given to the patient on 01/21/21. ASSESSMENT: Incomplete: need additional imaging evaluation, BI-RAD 0 RECOMMENDATION: Ultrasound of the right breast.
--- NOTE | 2021-01-24 10:27 | USB ---
Reason for exam: additional evaluation requested from abnormal screening. History: Family history of breast cancer in maternal grandmother at age 72 and breast cancer in maternal aunt at age 50. US Breast Limited RT Technologist: Whitney Edouard Right limited breast ultrasound including focal area of concern, retroareolar and axilla demonstrates a 0.6 x 0.8 x 0.3cm lymph node at 9 o'clock. These results were verbally communicated with the patient and result sheet given to the patient on 01/21/21. ASSESSMENT: Benign, BI-RAD 2 RECOMMENDATION: Routine screening mammogram of both breasts at age 35. Manage patient on a clinical basis.
== END | disposition home or self-care (01) ==
LOC: RADMAMWWP 15:01
PROVIDERS: ATTEND Pediatrics
DX: N63.11 Unspecified lump in the right breast, upper outer quadrant (principal); Z80.3 Family history of malignant neoplasm of breast
CPT/HCPCS: 77066; 76642; G0279; 77062

== ENCOUNTER → 2021-02-02 | Outpatient (CLI) | payer OTHER ==
--- NOTE | 2021-02-03 08:14 | US ---
EXAMINATION TYPE: US kidneys/renal and bladder DATE OF EXAM: 02/02/2021 COMPARISON: Ultrasound 06/30/2019 CLINICAL HISTORY: N28.89 Left kidney mass. Left kidney mass [facility]. EXAM MEASUREMENTS: Right Kidney: 9.3 x 4.5 x 3.3 cm Left Kidney: 10.72 x 5.1 x 4.3 cm Right Kidney: No hydronephrosis or masses seen Left Kidney: No hydronephrosis or masses seen Bladder: Not fully distended. Bilateral Jets seen: no IMPRESSION: 1. No left renal mass identified by ultrasound. CT could be performed as an alternative to ultrasound to visualize this mass. Comparison with the MRI may be useful.
== END ==
LOC: RADUSWWP 15:50
PROVIDERS: ATTEND Pediatrics
DX: N28.89 Other specified disorders of kidney and ureter (principal)
CPT/HCPCS: 76770

== ENCOUNTER 2021-02-06 15:37 | Emergency (ER) | payer OTHER ==
[2021-02-06 15:41] VITALS: BP 132/76; PULSE 91; RESP 20; TEMP 98.4
--- NOTE | 2021-02-06 16:19 | XR ---
EXAMINATION TYPE: XR ankle complete RT DATE OF EXAM: 02/06/2021 COMPARISON: NONE HISTORY: Ankle pain TECHNIQUE: 3 views FINDINGS: Ankle mortise is anatomic. I see no fracture nor dislocation. Joint spaces are normal. IMPRESSION: Negative right ankle exam.
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
== END 2021-02-06 16:35 | disposition home or self-care (01) ==
LOC: EC 15:37
DX: S93.401A Sprain of unspecified ligament of right ankle, initial encounter (principal); Y30.XXXA Falling, jumping or pushed from a high place, undetermined intent, initial encounter; Z79.899 Other long term (current) drug therapy
CPT/HCPCS: 73610; 99283; L4350

== ENCOUNTER 2021-03-09 18:56 | Emergency (ER) | payer OTHER ==
[2021-03-09] MEDS ORDERED: HYDROmorphone 1 MG/ML 1 ML SYRINGE IVP STA (19:31)
[2021-03-09] MEDS ORDERED: KETOROLAC 15 MG/ML 1 ML VIAL IVP STA (19:31)
[2021-03-09] MEDS ORDERED: ONDANSETRON 4 MG/2 ML VIAL IVP STA (19:31)
--- NOTE | 2021-03-09 20:02 | ED ---
General Adult HPI - General Chief complaint: Back Pain/Injury Stated complaint: post procedure pain Time Seen by Provider: 03/09/21 19:18 Source: patient Mode of arrival: ambulatory Limitations: no limitations - History of Present Illness Initial comments: 30-year-old female patient presents to the emergency department today for evaluation of increased low back pain and leg pain. Patient had epidural injections for chronic back pain to the lumbar region on Sunday. States about 20 minutes after the injection she started to have increased pain. States whenever she moves, sits to on, or stands long she gets sharp stabbing pains to the back. States she's been having weakness, numbness, and aching over the anterior aspects of her bilateral thighs since the injection as well. Denies any fever or chills. Denies any saddle anesthesia or loss of bowel or bladder control. Reports nausea due to the pain. States that she has informed Dr. Harrington of her symptoms and is scheduled for outpatient CT scan on Sunday. She states that she has been taking Naproxen at home and occasionally a half tablet of [place], but the medications are not helping. Patient denies any recent rash, cough, shortness of breath, chest pain, abdominal pain, diarrhea, constipation, dizziness, hematuria, dysuria, urinary urgency, urinary frequency, headache, visual changes, or any other complaints. - Related Data Home Medications Medication Instructions Recorded Confirmed Venlafaxine HCl ER [Effexor Xr] 150 mg PO HS 09/12/20 03/09/21 Dextroamphetamine/Amphetamine 40 mg PO DAILY 03/09/21 03/09/21 [Adderall Xr] Furosemide [Lasix] 20 mg PO DAILY 03/09/21 03/09/21 Montelukast Sodium [Singulair] 10 mg PO DAILY 03/09/21 03/09/21 Naproxen 500 mg PO BID PRN 03/09/21 03/09/21 traMADol HCL [Ultram] 50 - 100 mg PO TID PRN 03/09/21 03/09/21 Previous Rx's Medication Instructions Recorded Diazepam [Valium] 5 mg PO TID PRN 3 Days #9 tab 03/09/21 HYDROcodone/APAP 5-325MG [[place] 5] 1 each PO Q6HR PRN #12 tab 03/09/21 Allergies Allergy/AdvReac Type Severity Reaction Status Date / Time amoxicillin Allergy Rash/Hives/Shortness Verified 03/09/21 20:54 of Breath Review of Systems ROS Statement: Those systems with pertinent positive or pertinent negative responses have been documented in the HPI. ROS Other: All systems not noted in ROS Statement are negative. Past Medical History Past Medical History: No Reported History Additional Past Medical History / Comment(s): ovarian cyst History of Any Multi-Drug Resistant Organisms: None Reported Past Surgical History: Appendectomy, Hernia Repair, Orthopedic Surgery Additional Past Surgical History / Comment(s): rt ankle, lumar epidural, Past Anesthesia/Blood Transfusion Reactions: No Reported Reaction Past Psychological History: Anxiety Smoking Status: Never smoker Past Alcohol Use History: None Reported Past Drug Use History: None Reported - Past Family History Mother Family Medical History: Liver Disease, Renal Disease General Exam Limitations: no limitations General appearance: alert, in no apparent distress, other (This is a well- developed, well-nourished adult female patient in no acute distress. Vital signs upon presentation are temperature 98.1F, pulse 110, respirations 17, blood pressure 128/92, pulse ox 95% on room air.) Eye exam: Present: normal appearance, PERRL, EOMI. Absent: scleral icterus, conjunctival injection, periorbital swelling ENT exam: Present: normal exam, normal oropharynx, mucous membranes moist Respiratory exam: Present: normal lung sounds bilaterally. Absent: respiratory distress, wheezes, rales, rhonchi, stridor Cardiovascular Exam: Present: regular rate, normal rhythm, normal heart sounds. Absent: systolic murmur, diastolic murmur, rubs, gallop, clicks GI/Abdominal exam: Present: soft, normal bowel sounds. Absent: distended, tenderness, guarding, rebound, rigid Extremities exam: Present: normal inspection, full ROM, normal capillary refill, other (Skin to the x-rays is pink, warm, dry. Cap refill less than 3 seconds. Pedal and posttibial pulses are 2+ and equal bilaterally.). Absent: tenderness, pedal edema, joint swelling, calf tenderness Back exam: Present: normal inspection, vertebral tenderness (Lumbar), other (Punctures noted to the low back, no surrounding erythema, swelling, or drainage.) Neurological exam: Present: alert, oriented X3, CN II-XII intact Psychiatric exam: Present: normal affect, normal mood Skin exam: Present: warm, dry, intact, normal color. Absent: rash Course Vital Signs 03/09/21 19:08 Temperature 98.1 F Pulse Rate 110 H Respiratory 17 Rate Blood Pressure 128/92 O2 Sat by Pulse 95 Oximetry Medical Decision Making - Medical Decision Making 38-year-old female patient presents to the emergency department today for evaluation of increased low back pain with weakness on the numbness, pain over the anterior thighs. She did have epidural injections her spine on Sunday. Physical examination is unremarkable. She is neurologically intact no focal deficits. She has no concerning symptoms for cauda equina. She is afebrile, vitals. She did have outpatient CT of the lumbar spine ordered, we did perform that test here she had lumbar spine with and without contrast which showed no current abnormalities. She was given IV pain medication and muscle relaxer. Upon reevaluation she is resting more comfortably in bed. States she still does have some pain but it is better. She will be discharged to follow-up with Dr. Harrington as soon as possible. Return parameters were discussed in detail. She verbalizes understanding and agrees with this plan. Case discussed with my attending Dr. Rodriguez. - Radiology Data Radiology results: report reviewed, image reviewed CT lumbar spine with and without contrast was obtained. Report was reviewed in its entirety. Impression by Dr. Wyman shows no acute fracture or subluxation of the lumbar spine. No focal abnormal postcontrast enhancement or fluid collection demonstrated on CT exam. There is concern for epidural abscess or intrathecal process, recommend MRI. Disposition Clinical Impression: Other acute postprocedural pain, Back pain, Paresthesia Disposition: HOME SELF-CARE Condition: Good Instructions (If sedation given, give patient instructions): Acute Low Back Pain (ED) Additional Instructions: Medications as directed. Alternate ice and heat application. Call Dr. Harrington's office first thing in the morning for further instructions, inform them that you had your scan early. Return for any new, worsening, or concerning symptoms. Prescriptions: HYDROcodone/APAP 5-325MG [[place] 5] 1 each PO Q6HR PRN #12 tab PRN Reason: Pain Diazepam [Valium] 5 mg PO TID PRN 3 Days #9 tab PRN Reason: Muscle Spasm Is patient prescribed a controlled substance at d/c from ED?: Yes When asked, does pt state using other controlled substances?: No If prescribed controlled substance>3 days was MAPS reviewed?: Prescribed <3 Days If opioid is for acute pain is fill amount 7 days or less?: Yes If Rx opioid, was Start Talking consent form obtained?: Yes Referrals: Raghavendra Saunders MD [Primary Care Provider] - 1-2 days Ortiz Harrington MD [Medical Doctor] - 1-2 days Time of Disposition: 21:46
[2021-03-09] MEDS ORDERED: DIAZEPAM 5 MG/ML 2 ML INJ IVP STA (20:51)
[2021-03-09] MEDS ORDERED: HYDROmorphone 0.5 MG/0.5 ML SYRINGE IVP STA (20:51)
--- NOTE | 2021-03-09 21:12 | CT ---
EXAMINATION TYPE: CT lumbar spine wo/w con DATE OF EXAM: 03/09/2021 COMPARISON: None HISTORY: Increased pain post epidural injection CT DLP: 1920.2 mGycm Automated exposure control for dose reduction was used. CONTRAST: CT scan of the lumbar is performed with IV Contrast, patient injected with 100 mL of Isovue 300. Enhanced CT of the lumbar spine was performed. Bone and soft tissue window settings are submitted as well as coronal and sagittal reconstructions. CT exam does not evaluate the intrathecal sac. There is normal alignment of the lumbar spine. No acute fracture or subluxation. No spondylolisthesis . Degenerative disc disease effaces the ventral aspect of the thecal sac at L4-L5. No CT evidence of significant canal stenosis. The paraspinous musculature is unremarkable. No evidence of focal fluid c ollection of the soft tissues. IMPRESSION: 1. No acute fracture or subluxation of the lumbar spine. 2. No focal abnormal postcontrast enhancement or fluid collection demonstrated on CT exam. If there i s concern for epidural abscess or intrathecal process, recommend MRI of the lumbar spine.
[2021-03-09 22:24] VITALS: BP 129/76; PULSE 72; RESP 16; TEMP 97.9
== END 2021-03-09 22:36 | disposition home or self-care (01) ==
LOC: EC 18:56
DX: G89.18 Other acute postprocedural pain (principal); M54.5 Low back pain; R20.2 Paresthesia of skin; R11.0 Nausea; R53.1 Weakness; F41.9 Anxiety disorder, unspecified; Z79.899 Other long term (current) drug therapy; M79.606 Pain in leg, unspecified
CPT/HCPCS: 72133; 99283; 96374; 96375 ×3; J3360; J2405; J1170 ×2; J1885; Q9967

== ENCOUNTER → 2021-03-11 | Outpatient (CLI) | payer OTHER ==
[2021-03-11 13:06] VITALS: BP 119/73; PULSE 56; RESP 16; TEMP 98.5
--- NOTE | 2021-03-11 13:50 | P.GSHP ---
History of Present Illness H&P Date: 03/11/21 Chief Complaint: nipple discharge Faviola is a 30 year old white female seen in consultation for Dr. Saunders regarding a lump in her right breast. She had a bilateral mammogram performed and 3521. This revealed atypical benign high density circumscribed lobulated mass in the upper outer quadrant of the right breast. No lesions of concern were noted in the left breast. Following this an ultrasound was performed of the right breast and this revealed a 0.8 x 0.3 cm lymph node at 9:00. This was felt to be benign BIRADS 2 and routine screening of both breasts at 35 was recommended. The patient states that since that time she developed some nipple discharge on the right with increased pain in the area of the palpable nodularity which she felt. The discharge was clear and spontaneous. However, it was from multiple sites. She then saw her senior consulting manager who referred her here for evaluation. Her breast have increased in size from a 32B to a 34D. She has not gained any weight. She has not had any change in her periods. Her breat n do not change in relationship to her periods. She feels the nodule in the right breast in the 10:30 to 11 o'clock position. It has not changed since she noted at approximately 6 months ago. It does not fluctuate with her menstrual cycle. It is not painful. She has not had any recent trauma or infection in the breast. She's never had any surgery of her breast. She had recent lumbar spine injection and has severe back pain with ambulation today. She is going to follow with neurology. Caffeine: 2 coffee's/day nicotine: none chocolate: once a month Family History: maternal grandmother: breast cancer at 76 maternal aunt: HER2- breast cancer; dx. in 50's, metastatic brother: leukemia at 12 Hormonal History: menarche: 14 , breast fed: yes, first born at 21 periods regular, LMP 2 weeks ago BCP: 3 years Surgical history: Laparoscopic evaluation and hernia repair Right ankle surgery Medical history: retains H2O anxiety ADD Social History: smoke: none alcohol: none drugs: none - Constitutional Constitutional: Denies chills, Denies fever - EENT Eyes: left blurred vision, left pain Ears: deny: decreased hearing, tinnitus Ears, nose, mouth and throat: Reports headache, Denies sore throat - Breasts Breasts: bilateral: as per HPI - Cardiovascular Cardiovascular: Reports chest pain, Reports shortness of breath - Respiratory Comment: asthma - Gastrointestinal Gastrointestinal: Reports nausea, Denies abdominal pain, Denies diarrhea, Denies vomiting - Genitourinary (Female) Genitourinary: Denies dysuria, Denies hematuria - Menstruation Menstruation: Reports period normal - Musculoskeletal Comment: epidural done for back pain 4 days ago Musculoskeletal: Denies myalgias - Integumentary Comment: eczema - Neurological Neurological: Reports numbness, Reports weakness - Psychiatric Psychiatric: Reports anxiety - Endocrine Endocrine: Denies fatigue, Denies weight change - Hematologic/Lymphatic Comment: none - Allergic/Immunologic Allergic/Immunologic: Reports seasonal allergies Past Medical History Past Medical History: No Reported History Additional Past Medical History / Comment(s): ovarian cyst History of Any Multi-Drug Resistant Organisms: None Reported Past Surgical History: Appendectomy, Hernia Repair, Orthopedic Surgery Additional Past Surgical History / Comment(s): rt ankle, lumar epidural, Past Anesthesia/Blood Transfusion Reactions: No Reported Reaction Past Psychological History: Anxiety Smoking Status: Never smoker Past Alcohol Use History: None Reported Past Drug Use History: None Reported - Past Family History Mother Family Medical History: Liver Disease, Renal Disease Medications and Allergies Home Medications Medication Instructions Recorded Confirmed Type Venlafaxine HCl ER [Effexor Xr] 150 mg PO HS 09/12/20 03/11/21 History Dextroamphetamine/Amphetamine 40 mg PO DAILY 03/09/21 03/11/21 History [Adderall Xr] Diazepam [Valium] 5 mg PO TID PRN 3 Days #9 tab 03/09/21 03/11/21 Rx Furosemide [Lasix] 20 mg PO DAILY 03/09/21 03/11/21 History HYDROcodone/APAP 5-325MG [[place] 5] 1 each PO Q6HR PRN #12 tab 03/09/21 03/11/21 Rx Montelukast Sodium [Singulair] 10 mg PO DAILY 03/09/21 03/11/21 History Naproxen 500 mg PO BID PRN 03/09/21 03/11/21 History traMADol HCL [Ultram] 50 - 100 mg PO TID PRN 03/09/21 03/11/21 History Allergies Allergy/AdvReac Type Severity Reaction Status Date / Time amoxicillin Allergy Rash/Hives/Shortness Verified 03/11/21 13:01 of Breath Surgical - Exam Vital Signs Temp Pulse Resp BP Pulse Ox 98.5 F 56 L 16 119/73 98 03/11/21 13:03 03/11/21 13:03 03/11/21 13:03 03/11/21 13:03 03/11/21 13:03 BMI 34.3 - General well developed, well nourished, moderate distress - Eyes normal ocular movement - ENT normal nares - Neck no masses, trachea midline - Respiratory normal expansion, normal respiratory effort, clear to auscultation - Cardiovascular Rhythm: regular Heart Sounds: normal: S1, S2 - Integumentary normal turgor - Neurologic no disoriented, no combative - Musculoskeletal normal gait - Psychiatric oriented to time, oriented to person, oriented to place, speech is normal, memory intact breast exam: Bra: 34D inspection: Bilateral grade 2 ptosis Palpation: Right breast: Multi-positional exam fibrocystic changes, particularly attention to the area of concern further palpation reveals fibroglandular tissue no discrete lump or mass this in approximately the 10:30 position of the breast Right axilla: No adenopathy of concern Left breast: Multi-positional exam fibrocystic changes no dominant masses or nodules of concern Left axilla: No adenopathy of concern Assessment and Plan Assessment: Impression: retains H2O anxiety ADD fibrocystic breast changes Area of increased nodularity felt by patient appears to be fibrocystic changes Nipple discharge not expressed on today's examination Recent bilateral mammogram and right breast ultrasound benign BIRADS 2 area of concern in the right breast was ultrasound evaluated Plan: 1. Causes a fibrocystic breast disease discussed with the patient she will try to decrease caffeine intake 2. [place] oil 3. Follow-up evaluation in 6 months time 4. bilateral mamogram in one year 5. patient would like to have genetic testing/ will refer her CC: DR. Saunders Encounter 45 minutes, time spent in reviewing test, examination and counselling
== END ==
LOC: WWCWWP 12:54
PROVIDERS: ATTEND Surgery
DX: N60.11 Diffuse cystic mastopathy of right breast (principal); N60.12 Diffuse cystic mastopathy of left breast; F98.8 Other specified behavioral and emotional disorders with onset usually occurring in childhood and adolescence; F41.9 Anxiety disorder, unspecified; R60.9 Edema, unspecified

== ENCOUNTER 2021-06-04 14:23 | Emergency (ER) | payer OTHER ==
[2021-06-04 14:38] LABS: Glucose,Whole Blood 94 mg/dL (75-99)
[2021-06-04] MEDS ORDERED: SODIUM CHLORIDE 0.9% 1,000 ML IV ONE (15:03)
--- NOTE | 2021-06-04 15:38 | ED ---
General Adult HPI - General Source: patient Mode of arrival: ambulatory Limitations: no limitations <Prakash Dunaway - Last Filed: 06/04/21 17:29> <Ryanne Sahu - Last Filed: 06/05/21 23:43> - General Chief complaint: Vaginal Bleeding Stated complaint: poss miscarriage - History of Present Illness Initial comments: 31-year-old female with a past medical history of COPD, ovarian cyst presents to the emergency room for a chief complaint of vaginal bleeding. Patient reports that she is currently approximately 5 weeks with an LMP of May 02. Patient states she started to have some bleeding earlier today. States she does have some cramping in her lower abdomen. Patient is concerned she is miscarrying. Patient has not seen an ELECTRICAL ENGINEERING MANAGER for this yet.Patient has no other complaints at this time including shortness of breath, chest pain, abdominal pain, nausea or vomiting, headache, or visual changes. (Prakash Dunaway) - Related Data Home Medications Medication Instructions Recorded Confirmed Venlafaxine HCl ER [Effexor Xr] 150 mg PO HS 09/12/20 03/11/21 Dextroamphetamine/Amphetamine 40 mg PO DAILY 03/09/21 03/11/21 [Adderall Xr] Furosemide [Lasix] 20 mg PO DAILY 03/09/21 03/11/21 Montelukast Sodium [Singulair] 10 mg PO DAILY 03/09/21 03/11/21 Naproxen 500 mg PO BID PRN 03/09/21 03/11/21 traMADol HCL [Ultram] 50 - 100 mg PO TID PRN 03/09/21 03/11/21 Previous Rx's Medication Instructions Recorded Diazepam [Valium] 5 mg PO TID PRN 3 Days #9 tab 03/09/21 HYDROcodone/APAP 5-325MG [[place] 5] 1 each PO Q6HR PRN #12 tab 03/09/21 Allergies Allergy/AdvReac Type Severity Reaction Status Date / Time amoxicillin Allergy Rash/Hives/Shortness Verified 06/04/21 14:27 of Breath Review of Systems ROS Other: All systems not noted in ROS Statement are negative. <Prakash Dunaway - Last Filed: 06/04/21 17:29> ROS Other: All systems not noted in ROS Statement are negative. <Ryanne Sahu - Last Filed: 06/05/21 23:43> ROS Statement: Those systems with pertinent positive or pertinent negative responses have been documented in the HPI. Past Medical History Past Medical History: COPD Additional Past Medical History / Comment(s): ovarian cyst, History of Any Multi-Drug Resistant Organisms: None Reported Past Surgical History: Appendectomy, Hernia Repair, Orthopedic Surgery Additional Past Surgical History / Comment(s): rt ankle, lumar epidural, Past Anesthesia/Blood Transfusion Reactions: No Reported Reaction Past Psychological History: Anxiety Smoking Status: Never smoker Past Alcohol Use History: None Reported Past Drug Use History: None Reported - Past Family History Mother Family Medical History: Liver Disease, Renal Disease <Prakash Dunaway - Last Filed: 06/04/21 17:29> General Exam Limitations: no limitations General appearance: alert, in no apparent distress Head exam: Present: atraumatic, normocephalic, normal inspection Eye exam: Present: normal appearance, PERRL, EOMI. Absent: scleral icterus, conjunctival injection, periorbital swelling ENT exam: Present: normal exam, mucous membranes moist Neck exam: Present: normal inspection, full ROM. Absent: tenderness, meningismus, lymphadenopathy Respiratory exam: Present: normal lung sounds bilaterally Cardiovascular Exam: Present: regular rate, normal rhythm, normal heart sounds. Absent: systolic murmur, diastolic murmur, rubs, gallop, clicks GI/Abdominal exam: Present: soft, normal bowel sounds. Absent: distended, tenderness, guarding, rebound, rigid External exam: Present: normal external exam. Absent: erythema, swelling, lesions, lacerations, ecchymosis Speculum exam: Present: vaginal bleeding (Mild bleeding noted). Absent: normal speculum exam, erythema, vaginal discharge, cervical discharge, foreign body, tissue, laceration By manual exam: Present: normal by manual exam. Absent: cervical motion tenderness, adnexal tenderness, uterine tenderness <Prakash Dunaway P - Last Filed: 06/04/21 17:29> Course Vital Signs 06/04/21 06/04/21 06/04/21 14:24 15:43 17:35 Temperature 98 F 98.0 F Pulse Rate 69 79 82 Respiratory 20 16 16 Rate Blood Pressure 124/89 137/91 132/87 O2 Sat by Pulse 99 100 100 Oximetry Medical Decision Making - Lab Data Result diagrams: 06/04/21 15:32 06/04/21 15:32 <Prakash Dunaway - Last Filed: 06/04/21 17:29> - Lab Data Result diagrams: 06/04/21 15:32 06/04/21 15:32 <Ryanne Sahu - Last Filed: 06/05/21 23:43> - Medical Decision Making Vitals are stable. Patient has mild vaginal bleeding on exam. Patient reports she had a positive test about 4 weeks ago. Laboratory evaluation was initiated. CBC CMP unremarkable. HCG is less than 2.4. Urinalysis is negative. Blood type is A+. Ultrasound shows an empty uterus. Cervical cysts are noted. No sign of ectopic . Given patient had a positive urine test about 4 weeks ago it is likely that she either miscarried or had a false positive test. At this point we recommend she follow up with her ELECTRICAL ENGINEERING MANAGER Dr. saavedra. If she cannot get into Dr. Leung we will give her the name of Dr. Espinoza who is on-call this weekend. I did discuss strict return parameters including increased bleeding or pain. (Prakash Dunaway) I was available for consultation in the emergency department. The history and physical exam were done by the midlevel provider. I was consulted for this patients care. I reviewed the case with the midlevel provider and based on their presentation of the patient, I agree with the assessment, medical decision making and plan of care as documented. Chart was dictated using [employer] dictation software. Attempts were made to co rrect any dictation errors however some typographical errors may persist. (Ryanne Sahu) - Lab Data Lab Results 06/04/21 06/04/21 06/04/21 Range/Units 14:35 15:32 15:32 WBC 6.6 (3.8-10.6) k/uL RBC 4.82 (3.80-5.40) m/uL Hgb 14.9 (11.4-16.0) gm/dL Hct 43.9 (34.0-46.0) % MCV 91.1 (80.0-100.0) fL MCH 30.9 (25.0-35.0) pg MCHC 34.0 (31.0-37.0) g/dL RDW 12.5 (11.5-15.5) % Plt Count 250 (150-450) k/uL MPV 7.6 Neutrophils % 68 % Lymphocytes % 24 % Monocytes % 4 % Eosinophils % 2 % Basophils % 1 % Neutrophils # 4.5 (1.3-7.7) k/uL Lymphocytes # 1.6 (1.0-4.8) k/uL Monocytes # 0.3 (0-1.0) k/uL Eosinophils # 0.1 (0-0.7) k/uL Basophils # 0.0 (0-0.2) k/uL Sodium (137-145) mmol/L Potassium (3.5-5.1) mmol/L Chloride (98-107) mmol/L Carbon Dioxide (22-30) mmol/L Anion Gap mmol/L BUN (7-17) mg/dL Creatinine (0.52-1.04) mg/dL Est GFR (CKD-EPI)AfAm (>60 ml/min/1.73 sqM) Est GFR (CKD-EPI)NonAf (>60 ml/min/1.73 sqM) Glucose (74-99) mg/dL POC Glucose (mg/dL) 94 (75-99) mg/dL POC Glu Security Test Engineer ID Hannah Blake Calcium (8.4-10.2) mg/dL Total Bilirubin (0.2-1.3) mg/dL AST (14-36) U/L ALT (4-34) U/L Alkaline Phosphatase (38-126) U/L Total Protein (6.3-8.2) g/dL Albumin (3.5-5.0) g/dL HCG, Quant mIU/mL Urine Color Light Yellow Urine Appearance Clear (Clear) Urine pH 7.5 (5.0-8.0) Ur Specific [place] 1.004 (1.001-1.035) Urine Protein Negative (Negative) Urine Glucose (UA) Negative (Negative) Urine Ketones Negative (Negative) Urine Blood Moderate H (Negative) Urine Nitrite Negative (Negative) Urine Bilirubin Negative (Negative) Urine Urobilinogen <2.0 (<2.0) mg/dL Ur Leukocyte Esterase Negative (Negative) Urine RBC 1 (0-5) /hpf Urine WBC 1 (0-5) /hpf Ur Squamous Epith Cells 1 (0-4) /hpf Urine Mucus Rare H (None) /hpf Blood Type Blood Type Recheck Bld Type Recheck Status 06/04/21 06/04/21 Range/Units 15:32 15:32 WBC (3.8-10.6) k/uL RBC (3.80-5.40) m/uL Hgb (11.4-16.0) gm/dL Hct (34.0-46.0) % MCV (80.0-100.0) fL MCH (25.0-35.0) pg MCHC (31.0-37.0) g/dL RDW (11.5-15.5) % Plt Count (150-450) k/uL MPV Neutrophils % % Lymphocytes % % Monocytes % % Eosinophils % % Basophils % % Neutrophils # (1.3-7.7) k/uL Lymphocytes # (1.0-4.8) k/uL Monocytes # (0-1.0) k/uL Eosinophils # (0-0.7) k/uL Basophils # (0-0.2) k/uL Sodium 141 (137-145) mmol/L Potassium 4.3 (3.5-5.1) mmol/L Chloride 104 (98-107) mmol/L Carbon Dioxide 30 (22-30) mmol/L Anion Gap 7 mmol/L BUN 8 (7-17) mg/dL Creatinine 0.67 (0.52-1.04) mg/dL Est GFR (CKD-EPI)AfAm >90 (>60 ml/min/1.73 sqM) Est GFR (CKD-EPI)NonAf >90 (>60 ml/min/1.73 sqM) Glucose 98 (74-99) mg/dL POC Glucose (mg/dL) (75-99) mg/dL POC Glu Security Test Engineer ID Calcium 9.4 (8.4-10.2) mg/dL Total Bilirubin 0.5 (0.2-1.3) mg/dL AST 18 (14-36) U/L ALT 13 (4-34) U/L Alkaline Phosphatase 53 (38-126) U/L Total Protein 6.9 (6.3-8.2) g/dL Albumin 4.1 (3.5-5.0) g/dL HCG, Quant <2.4 mIU/mL Urine Color Urine Appearance (Clear) Urine pH (5.0-8.0) Ur Specific [place] (1.001-1.035) Urine Protein (Negative) Urine Glucose (UA) (Negative) Urine Ketones (Negative) Urine Blood (Negative) Urine Nitrite (Negative) Urine Bilirubin (Negative) Urine Urobilinogen (<2.0) mg/dL Ur Leukocyte Esterase (Negative) Urine RBC (0-5) /hpf Urine WBC (0-5) /hpf Ur Squamous Epith Cells (0-4) /hpf Urine Mucus (None) /hpf Blood Type A Positive Blood Type Recheck A Pos Bld Type Recheck Status No Disposition Is patient prescribed a controlled substance at d/c from ED?: No Time of Disposition: 17:30 <Prakash Dunaway - Last Filed: 06/04/21 17:29> <Ryanne Sahu - Last Filed: 06/05/21 23:43> Clinical Impression: Vaginal bleeding, Pelvic pain with negative beta-human chorionic gonadotropin (BhCG) in female Narrative: history of positive urine test (Prakash Dunaway) Disposition: HOME SELF-CARE Condition: Good Instructions (If sedation given, give patient instructions): Miscarriage (ED), Dysfunctional Uterine Bleeding (ED) Additional Instructions: Please follow-up with your ELECTRICAL ENGINEERING MANAGER. If symptoms worsen such as you are having worsening bleeding, pain, or fevers return to the emergency room. Referrals: Raghavendra Saunders MD [Primary Care Provider] - 1-2 days Kasey Leung MD [STAFF PHYSICIAN] - 1-2 days Ann-Marie Espinoza DO [Doctor of Osteopathic Medicine] - 1-2 days
[2021-06-04 15:44] VITALS: RESP 16
[2021-06-04 15:49] LABS: Appearance,Urine Clear (Clear); Basophils % (A) 1 %; Bilirubin,Urine Negative (Negative); Blood,Urine Moderate (Negative); Color,Urine Light Yellow; Eosinophils # (A) 0.1 k/uL (0-0.7); Eosinophils % (A) 2 %; Glucose,Urine (UA) Negative (Negative); HCT 43.9 % (34.0-46.0); HGB 14.9 gm/dL (11.4-16.0); Ketones,Urine Negative (Negative); Leukocyte Esterase,Urine Negative (Negative); Lymphocytes # (A) 1.6 k/uL (1.0-4.8); Lymphocytes % (A) 24 %; MCH 30.9 pg (25.0-35.0); MCV 91.1 fL (80.0-100.0); Mean Platelet Volume 7.6; Monocytes # (A) 0.3 k/uL (0-1.0); Monocytes % (A) 4 %; Mucus,Urine Rare /hpf; Neutrophils # (A) 4.5 k/uL (1.3-7.7); Neutrophils % (A) 68 %; Nitrite,Urine Negative (Negative); PH, Urine 7.5 (5.0-8.0); Platelet Count 250 k/uL (150-450); Protein,Urine Negative (Negative); RBC 4.82 m/uL (3.80-5.40); RBC,Urine 1 /hpf (0-5); RDW 12.5 % (11.5-15.5); Specific Gravity,Urine 1.004 (1.001-1.035); Squamous Epithelial Cell,Urine 1 /hpf (0-4); Urobilinogen,Urine <2.0 mg/dL (<2.0); WBC 6.6 k/uL (3.8-10.6); WBC,Urine 1 /hpf (0-5)
[2021-06-04 16:00] LABS: ALT 13 U/L (4-34); AST 18 U/L (14-36); African American GFR (CKD) >90 (>60 ml/min/1.73 sqM); Albumin 4.1 g/dL (3.5-5.0); Alkaline Phosphatase 53 U/L (38-126); Anion Gap 7 mmol/L; Blood Urea Nitrogen 8 mg/dL (7-17); Calcium 9.4 mg/dL (8.4-10.2); Carbon Dioxide 30 mmol/L (22-30); Chloride 104 mmol/L (98-107); Glucose 98 mg/dL (74-99); Non-African American GFR(CKD) >90 (>60 ml/min/1.73 sqM); Potassium 4.3 mmol/L (3.5-5.1); Sodium 141 mmol/L (137-145); Total Bilirubin 0.5 mg/dL (0.2-1.3); Total Protein 6.9 g/dL (6.3-8.2)
[2021-06-04 16:18] LABS: HCG,Quantitative Serum <2.4 mIU/mL
--- NOTE | 2021-06-04 17:07 | US ---
EXAMINATION TYPE: Transabdominal DATE OF EXAM: 06/04/2021 4:43 PM COMPARISON: US, This is first US for this . CLINICAL HISTORY: pain. Pelvic pain. LMP unknown. EXAM PERFORMED: Transvaginal (TV) and Transabdominal (TA) EXAM MEASUREMENTS: GESTATIONAL AGE / DATING Physician Established: Not yet established. Dates by LMP: Unknown. Dates by First Scan: This is first scan. Dates by Current Scan for: No IUP seen at this time. MATERNAL ANATOMY Uterus: 10.6 x 5.1 x 3.4 cm. Anteverted. Hyperechoic area with posterior shadowing seen within the u terus: 0.6 x 0.4 x 0.3 cm. Multiple anechoic areas seen in cervix. Largest measures: 0.7 x 0.9 x 0.8 cm. Right Ovary: 4.1 x 2.1 x 1.8 cm. Anechoic areas seen. Largest measures: 1.1 x 0.6 x 0.7 cm. Left Ovary: 3.1 x 2.0 x 1.6 cm. Post CDS / Adnexa: Appear wnl. Presence of free fluid: None seen. Presence of corpus luteal cyst: Not seen. GESTATION / SURVEY IUP: No IUP seen at this time. Date of LMP: Unknown per patient. Beta HcG (if available): Not available before exam. IMPRESSION: Empty uterus. Cervical cysts are noted. No solid adnexal mass. No sign of ectopic .
[2021-06-04 17:37] VITALS: BP 132/87; PULSE 82; TEMP 98
== END 2021-06-04 17:37 | disposition home or self-care (01) ==
LOC: EC 14:23
DX: N93.9 Abnormal uterine and vaginal bleeding, unspecified (principal); R10.2 Pelvic and perineal pain; J44.9 Chronic obstructive pulmonary disease, unspecified; Z88.0 Allergy status to penicillin
CPT/HCPCS: 36415; 76801; 76817; 80053; 81001; 84702; 85025; 86900; 86901; 96360; 96361; 99284

== ENCOUNTER 2021-07-20 10:35 | Emergency (ER) | payer OTHER ==
[2021-07-20 10:39] VITALS: RESP 18; TEMP 98.3
[2021-07-20] MEDS ORDERED: ONDANSETRON 4 MG/2 ML VIAL IVP STA (10:52)
[2021-07-20] MEDS ORDERED: KETOROLAC 15 MG/ML 1 ML VIAL IVP STA (10:53)
[2021-07-20] MEDS ORDERED: SODIUM CHLORIDE 0.9% 500 ML 500 ML IV STA (10:53)
--- NOTE | 2021-07-20 10:56 | ED ---
General Adult HPI - General Chief complaint: Chest Pain Stated complaint: chest pain, lt sided pain Time Seen by Provider: 07/20/21 10:35 Source: patient, RN notes reviewed, old records reviewed Mode of arrival: wheelchair Limitations: no limitations - History of Present Illness Initial comments: This is a 31-year-old female presents emergency Department complaining of chest pain anteriorly that is reproducible and states it goes up to the left upper chest which is also reproducible. Patient denies any diaphoretic episodes. Patient denies any difficulty breathing shortness of breath. Patient denies palpitations. Patient states the pain started yesterday at about 4:30 and it hurts more when she presses it. Patient denies any recent fever chills or cough. Patient also states she's mildly nauseated and has not vomited. Patient denies any diarrhea. Patient has any back pain. Patient denies any injury or any heavy lifting that she knows of. - Related Data Home Medications Medication Instructions Recorded Confirmed Dextroamphetamine/Amphetamine 40 mg PO DAILY 03/09/21 07/20/21 [Adderall Xr] Venlafaxine HCl [Effexor XR] 225 mg PO HS 07/20/21 07/20/21 Previous Rx's Medication Instructions Recorded Ibuprofen [Motrin] 600 mg PO Q6HR PRN #20 tab 07/20/21 Allergies Allergy/AdvReac Type Severity Reaction Status Date / Time amoxicillin Allergy Rash/Hives/Shortness Verified 07/20/21 11:33 of Breath Review of Systems ROS Statement: Those systems with pertinent positive or pertinent negative responses have been documented in the HPI. ROS Other: All systems not noted in ROS Statement are negative. Past Medical History Past Medical History: COPD Additional Past Medical History / Comment(s): ovarian cyst, History of Any Multi-Drug Resistant Organisms: None Reported Past Surgical History: Appendectomy, Hernia Repair, Orthopedic Surgery Additional Past Surgical History / Comment(s): rt ankle, lumbar epidural, Past Anesthesia/Blood Transfusion Reactions: No Reported Reaction Past Psychological History: Anxiety Smoking Status: Never smoker Past Alcohol Use History: None Reported Past Drug Use History: None Reported - Past Family History Mother Family Medical History: Liver Disease, Renal Disease General Exam - General Exam Comments Initial Comments: GENERAL: Patient is well-developed and well-nourished. Patient is nontoxic and well- hydrated and is in mild distress. ENT: Neck is soft and supple. No significant lymphadenopathy is noted. Oropharynx is clear. Moist mucous membranes. Neck has full range of motion without eliciting any pain. EYES: The sclera were anicteric and conjunctiva were pink and moist. Extraocular movements were intact and pupils were equal round and reactive to light. Eyelids were unremarkable. PULMONARY: Unlabored respirations. Good breath sounds bilaterally. No audible rales rhonchi or wheezing was noted. CARDIOVASCULAR: There is a regular rate and rhythm without any murmurs gallops or rubs. ABDOMEN: Soft and nontender with normal bowel sounds. SKIN: Skin is clear with no lesions or rashes and otherwise unremarkable. NEUROLOGIC: Patient is alert and oriented x3. Cranial nerves II through XII are grossly intact. Motor and sensory are also intact. Normal speech, volume and content. Symmetrical smile. MUSCULOSKELETAL: Normal extremities with adequate strength and full range of motion. No lower extremity swelling or edema. No calf tenderness. LYMPHATICS: No significant lymphadenopathy is noted PSYCHIATRIC: Normal psychiatric evaluation. Limitations: no limitations Course Vital Signs 07/20/21 07/20/21 10:36 12:21 Temperature 98.3 F Pulse Rate 91 87 Respiratory 18 18 Rate Blood Pressure 135/82 115/61 O2 Sat by Pulse 100 100 Oximetry Medical Decision Making - Medical Decision Making EKG shows normal sinus rhythm at 85 bpm IA interval 150 QRS is 88 QT interval 340 QTC is 44. Patient's EKG shows no ST segment elevation or depression. Patient felt better after she received some Toradol. X-ray the chest shows no acute abnormality. Patient will follow-up with the primary medical care doctor. - Lab Data Result diagrams: 07/20/21 11:00 07/20/21 11:00 Lab Results 07/20/21 07/20/21 07/20/21 Range/Units 11:00 11:00 11:00 WBC 5.5 (3.8-10.6) k/uL RBC 4.73 (3.80-5.40) m/uL Hgb 14.7 (11.4-16.0) gm/dL Hct 43.9 (34.0-46.0) % MCV 92.7 (80.0-100.0) fL MCH 31.1 (25.0-35.0) pg MCHC 33.5 (31.0-37.0) g/dL RDW 13.1 (11.5-15.5) % Plt Count 224 (150-450) k/uL MPV 8.6 Neutrophils % 63 % Lymphocytes % 30 % Monocytes % 4 % Eosinophils % 1 % Basophils % 1 % Neutrophils # 3.5 (1.3-7.7) k/uL Lymphocytes # 1.7 (1.0-4.8) k/uL Monocytes # 0.2 (0-1.0) k/uL Eosinophils # 0.0 (0-0.7) k/uL Basophils # 0.0 (0-0.2) k/uL PT 10.3 (9.0-12.0) sec INR 1.0 (<1.2) APTT 24.1 (22.0-30.0) sec D-Dimer 0.24 (<0.60) mg/L FEU Sodium 138 (137-145) mmol/L Potassium 4.4 (3.5-5.1) mmol/L Chloride 104 (98-107) mmol/L Carbon Dioxide 29 (22-30) mmol/L Anion Gap 5 mmol/L BUN 17 (7-17) mg/dL Creatinine 0.70 (0.52-1.04) mg/dL Est GFR (CKD-EPI)AfAm >90 (>60 ml/min/1.73 sqM) Est GFR (CKD-EPI)NonAf >90 (>60 ml/min/1.73 sqM) Glucose 57 L (74-99) mg/dL Calcium 9.3 (8.4-10.2) mg/dL Magnesium 1.8 (1.6-2.3) mg/dL Total Bilirubin 0.3 (0.2-1.3) mg/dL AST 18 (14-36) U/L ALT 11 (4-34) U/L Alkaline Phosphatase 45 (38-126) U/L Troponin I (0.000-0.034) ng/mL Total Protein 6.8 (6.3-8.2) g/dL Albumin 4.0 (3.5-5.0) g/dL Amylase 55 (30-110) U/L Lipase 129 (23-300) U/L Urine HCG, Qual (Not Detectd) 07/20/21 07/20/21 Range/Units 11:00 11:23 WBC (3.8-10.6) k/uL RBC (3.80-5.40) m/uL Hgb (11.4-16.0) gm/dL Hct (34.0-46.0) % MCV (80.0-100.0) fL MCH (25.0-35.0) pg MCHC (31.0-37.0) g/dL RDW (11.5-15.5) % Plt Count (150-450) k/uL MPV Neutrophils % % Lymphocytes % % Monocytes % % Eosinophils % % Basophils % % Neutrophils # (1.3-7.7) k/uL Lymphocytes # (1.0-4.8) k/uL Monocytes # (0-1.0) k/uL Eosinophils # (0-0.7) k/uL Basophils # (0-0.2) k/uL PT (9.0-12.0) sec INR (<1.2) APTT (22.0-30.0) sec D-Dimer (<0.60) mg/L FEU Sodium (137-145) mmol/L Potassium (3.5-5.1) mmol/L Chloride (98-107) mmol/L Carbon Dioxide (22-30) mmol/L Anion Gap mmol/L BUN (7-17) mg/dL Creatinine (0.52-1.04) mg/dL Est GFR (CKD-EPI)AfAm (>60 ml/min/1.73 sqM) Est GFR (CKD-EPI)NonAf (>60 ml/min/1.73 sqM) Glucose (74-99) mg/dL Calcium (8.4-10.2) mg/dL Magnesium (1.6-2.3) mg/dL Total Bilirubin (0.2-1.3) mg/dL AST (14-36) U/L ALT (4-34) U/L Alkaline Phosphatase (38-126) U/L Troponin I <0.012 (0.000-0.034) ng/mL Total Protein (6.3-8.2) g/dL Albumin (3.5-5.0) g/dL Amylase (30-110) U/L Lipase (23-300) U/L Urine HCG, Qual Not Detected (Not Detectd) Disposition Clinical Impression: Chest wall pain Disposition: HOME SELF-CARE Instructions (If sedation given, give patient instructions): Chest Pain (ED) Prescriptions: Ibuprofen [Motrin] 600 mg PO Q6HR PRN #20 tab PRN Reason: For pain Is patient prescribed a controlled substance at d/c from ED?: No Referrals: Raghavendra Saunders MD [Primary Care Provider] - 1-2 days Time of Disposition: 13:00
[2021-07-20 11:28] LABS: ALT 11 U/L (4-34); AST 18 U/L (14-36); African American GFR (CKD) >90 (>60 ml/min/1.73 sqM); Alkaline Phosphatase 45 U/L (38-126); Amylase 55 U/L (30-110); Anion Gap 5 mmol/L; Blood Urea Nitrogen 17 mg/dL (7-17); Calcium 9.3 mg/dL (8.4-10.2); Carbon Dioxide 29 mmol/L (22-30); Chloride 104 mmol/L (98-107); Glucose 57 mg/dL (74-99); Lipase 129 U/L (23-300); Magnesium 1.8 mg/dL (1.6-2.3); Non-African American GFR(CKD) >90 (>60 ml/min/1.73 sqM); Potassium 4.4 mmol/L (3.5-5.1); Sodium 138 mmol/L (137-145); Total Bilirubin 0.3 mg/dL (0.2-1.3); Total Protein 6.8 g/dL (6.3-8.2)
[2021-07-20 11:34] LABS: Basophils % (A) 1 %; Eosinophils % (A) 1 %; HCT 43.9 % (34.0-46.0); HGB 14.7 gm/dL (11.4-16.0); Lymphocytes # (A) 1.7 k/uL (1.0-4.8); Lymphocytes % (A) 30 %; MCH 31.1 pg (25.0-35.0); MCHC 33.5 g/dL (31.0-37.0); MCV 92.7 fL (80.0-100.0); Mean Platelet Volume 8.6; Monocytes # (A) 0.2 k/uL (0-1.0); Monocytes % (A) 4 %; Neutrophils # (A) 3.5 k/uL (1.3-7.7); Neutrophils % (A) 63 %; Platelet Count 224 k/uL (150-450); RBC 4.73 m/uL (3.80-5.40); RDW 13.1 % (11.5-15.5); WBC 5.5 k/uL (3.8-10.6)
[2021-07-20 12:10] LABS: Partial Thromboplastin Time 24.1 sec (22.0-30.0); Prothrombin Time 10.3 sec (9.0-12.0)
[2021-07-20 12:22] VITALS: BP 115/61; PULSE 87
--- NOTE | 2021-07-20 12:34 | XR ---
EXAMINATION TYPE: XR chest 2V DATE OF EXAM: 07/20/2021 COMPARISON: 03/19/2012 HISTORY: Chest pain TECHNIQUE: Frontal and lateral views of the chest are obtained. FINDINGS: There is no focal air space opacity. No evidence for pneumothorax. No pleural effusion. The cardiac silhouette size is within normal limits. The osseous structures are grossly intact. IMPRESSION: 1. No acute cardiopulmonary process.
== END 2021-07-20 13:12 | disposition home or self-care (01) ==
LOC: EC 10:35
DX: R07.89 Other chest pain (principal); M54.9 Dorsalgia, unspecified; R11.0 Nausea; J44.9 Chronic obstructive pulmonary disease, unspecified; Z88.0 Allergy status to penicillin
CPT/HCPCS: 36415; 93005; 85379; 80053; 82150; 83690; 83735; 84484; 85025; 85610; 85730; 81025; 71046; 99285; 96374; 96375; J2405; J1885

== ENCOUNTER 2021-08-01 10:45 | Emergency (ER) | payer OTHER ==
[2021-08-01 11:14] VITALS: RESP 18; TEMP 98.1
[2021-08-01] MEDS ORDERED: MORPHINE SULFATE 4 MG/ML SYRINGE IVP STA (11:54)
[2021-08-01] MEDS ORDERED: MORPHINE SULFATE 4 MG/ML SYRINGE IM STA (12:01)
[2021-08-01] MEDS ORDERED: ONDANSETRON ODT 4 MG TAB PO STA (12:10)
--- NOTE | 2021-08-01 12:33 | CT ---
EXAMINATION TYPE: CT brain wo con DATE OF EXAM: 08/01/2021 COMPARISON: 03/12/2012 HISTORY: Hit top of head CT DLP: 1040.[address] of the brain was performed. The ventricles, basal cisterns and sulci overlying the cerebral convexities demonstrate a normal appe arance. There is no evidence for intracranial hemorrhage or sulcal effacement. No mass effects are seen. Osseous calvarium is intact. If symptoms persist consider MRI as clinically warranted. IMPRESSION: 1. No acute intracranial process is seen at this time.
--- NOTE | 2021-08-01 12:43 | ED ---
Head Injury HPI - General Chief complaint: Head Injury Stated complaint: head injury Time Seen by Provider: 08/01/21 11:25 Source: patient, RN notes reviewed Mode of arrival: ambulatory Limitations: no limitations - History of Present Illness Initial comments: 31-year-old female presents to emergency department complaining of continuing headache Sunday. She no she stood up hit her head on a safe felt like somebody poured a glass of water over her head. She notes that she is still having headaches symptoms and pain on the left side of her head. Patient was otherwise a well-appearing 31-year-old female in no apparent distress. She denied any pain with extraocular movement. She denied any chest pain shortness of breath vomiting diarrhea constipation fever fatigue chills. - Related Data Home Medications Medication Instructions Recorded Confirmed Dextroamphetamine/Amphetamine 40 mg PO DAILY 03/09/21 07/20/21 [Adderall Xr] Venlafaxine HCl [Effexor XR] 225 mg PO HS 07/20/21 07/20/21 Previous Rx's Medication Instructions Recorded Ibuprofen [Motrin] 600 mg PO Q6HR PRN #20 tab 07/20/21 Allergies/Adverse reactions: Allergies Allergy/AdvReac Type Severity Reaction Status Date / Time amoxicillin Allergy Rash/Hives/Shortness Verified 08/01/21 11:14 of Breath Review of Systems ROS Statement: Those systems with pertinent positive or pertinent negative responses have been documented in the HPI. ROS Other: All systems not noted in ROS Statement are negative. Past Medical History Past Medical History: COPD Additional Past Medical History / Comment(s): ovarian cyst, History of Any Multi-Drug Resistant Organisms: None Reported Past Surgical History: Appendectomy, Hernia Repair, Orthopedic Surgery Additional Past Surgical History / Comment(s): rt ankle, lumbar epidural, Past Anesthesia/Blood Transfusion Reactions: No Reported Reaction Past Psychological History: Anxiety Smoking Status: Never smoker Past Alcohol Use History: None Reported Past Drug Use History: None Reported - Past Family History Mother Family Medical History: Liver Disease, Renal Disease General Exam Limitations: no limitations General appearance: alert, in no apparent distress Head exam: Present: atraumatic, normocephalic, normal inspection Eye exam: Present: normal appearance, PERRL, EOMI, other (Patient did get dizzy and extraocular movement test.). Absent: scleral icterus, conjunctival injection, periorbital swelling Neck exam: Present: normal inspection Respiratory exam: Present: normal lung sounds bilaterally. Absent: respiratory distress, wheezes, rales, rhonchi, stridor Cardiovascular Exam: Present: regular rate, normal rhythm, normal heart sounds. Absent: systolic murmur, diastolic murmur, rubs, gallop, clicks Extremities exam: Present: normal inspection, full ROM, normal capillary refill. Absent: tenderness, pedal edema, joint swelling, calf tenderness Neurological exam: Present: alert, oriented X3 Psychiatric exam: Present: normal affect, normal mood Skin exam: Present: warm, dry, intact, normal color. Absent: rash Course Vital Signs 08/01/21 11:08 Temperature 98.1 F Pulse Rate 87 Respiratory 18 Rate Blood Pressure 127/85 O2 Sat by Pulse 100 Oximetry Medical Decision Making - Medical Decision Making 31-year-old female status post hitting her head on a safe 3 days ago complaining of headache. CT of the brain, 4 mg of morphine, 4 mg of Zofran ordered. Computed tomography scan of the brain negative for any acute intracranial abnormality. 1 mg of Dilaudid ordered for 10 pain, patient has a ride home. Case discussed with Dr. Marte, patient discharge home. - Radiology Data Radiology results: report reviewed, image reviewed CT of the brain: No acute intracranial process seen at this time. Disposition Clinical Impression: Contusion of scalp, Concussion, Head injury Disposition: HOME SELF-CARE Condition: Stable Instructions (If sedation given, give patient instructions): Concussion (ED) Additional Instructions: Please return to the Emergency Department if symptoms worsen or any other concerns. Follow-up with primary care 1-2 days. Take Tylenol as prescribed. Is patient prescribed a controlled substance at d/c from ED?: No Referrals: Raghavendra Saunders MD [Primary Care Provider] - 1-2 days Time of Disposition: 13:22
[2021-08-01] MEDS ORDERED: HYDROmorphone 1 MG/ML 1 ML SYRINGE IM STA (13:17)
[2021-08-01] MEDS ORDERED: ACET/COD 300 MG/30 MG STARTER PACK 6 TAB BTL PO STA (13:18)
[2021-08-01 13:54] VITALS: BP 133/87; PULSE 85
== END 2021-08-01 13:54 | disposition home or self-care (01) ==
LOC: EC 10:45
DX: S06.0X0A Concussion without loss of consciousness, initial encounter (principal); S00.03XA Contusion of scalp, initial encounter; J44.9 Chronic obstructive pulmonary disease, unspecified; R40.2362 Coma scale, best motor response, obeys commands, at arrival to emergency department; R40.2142 Coma scale, eyes open, spontaneous, at arrival to emergency department; R40.2252 Coma scale, best verbal response, oriented, at arrival to emergency department; Z88.0 Allergy status to penicillin; W22.8XXA Striking against or struck by other objects, initial encounter; Y92.009 Unspecified place in unspecified non-institutional (private) residence as the place of occurrence of the external cause
CPT/HCPCS: 70450; 99284; 96372; J2270; J1170

== ENCOUNTER → 2021-10-17 | Outpatient (CLI) | payer OTHER ==
--- NOTE | 2021-10-18 17:11 | XR ---
EXAMINATION TYPE: XR chest 2V DATE OF EXAM: 10/17/2021 COMPARISON: 07/20/2021 INDICATION: Cough short of breath TECHNIQUE: Frontal and lateral views of the chest are obtained. FINDINGS: The heart size is normal. The pulmonary vasculature is normal. Diffuse patchy infiltrates in the right lower lung field. Correlate for pneumonia. Atypical pneumonia can be considered. IMPRESSION: 1. Patchy infiltrate through the mid and lower right lung field. Follow-up is recommended
== END | disposition home or self-care (01) ==
LOC: RADXRMAIN 16:49
PROVIDERS: ATTEND Pediatrics
DX: R91.8 Other nonspecific abnormal finding of lung field (principal)
CPT/HCPCS: 71046

== ENCOUNTER 2022-01-19 10:52 | Emergency (ER) | payer OTHER ==
[2022-01-19 11:00] VITALS: BP 146/81; PULSE 78; RESP 18; TEMP 98.2
--- NOTE | 2022-01-19 12:06 | US ---
EXAMINATION TYPE: US venous doppler duplex LE LT DATE OF EXAM: 01/19/2022 11:40 AM COMPARISON: US CLINICAL HISTORY: rule out DVT. . EC patient with left above knee to below knee swelling, pain and sk in redness today; no known trauma; hx of herniated disc SIDE PERFORMED: Left TECHNIQUE: The lower extremity deep venous system is examined utilizing real time linear array sonog amadeo with graded compression, doppler sonography and color-flow sonography. VESSELS IMAGED: Common Femoral Vein Deep Femoral Vein Greater Saphenous Vein * Femoral Vein Popliteal Vein Small Saphenous Vein * Proximal Calf Veins (* superficial vessels) Left Leg: Negative for DVT. No superficial vein thrombosis is seen at patient's area of pain. IMPRESSION: 1. Left lower extremity ultrasound negative for deep venous thrombosis.
--- NOTE | 2022-01-19 12:30 | ED ---
General Adult HPI - General Chief complaint: Extremity Injury, Lower Stated complaint: Poss DVT Time Seen by Provider: 01/19/22 11:14 Source: patient, RN notes reviewed Mode of arrival: ambulatory Limitations: no limitations - History of Present Illness Initial comments: 31-year-old female presents emergency Department with chief complaint of left leg pain and swelling. Patient states certain last 24 hours. Patient states she was some redness. Patient denies any chest pain shortness breath she is currently 15 weeks was sent in for concerns of possible DVT. Patient offers no other complaints. - Related Data Home Medications Medication Instructions Recorded Confirmed Escitalopram [Lexapro] 10 mg PO DAILY 01/19/22 01/19/22 [id number] Acid 1 cap PO DAILY 01/19/22 01/19/22 [-U Capsule (formulary)] Previous Rx's Medication Instructions Recorded Cephalexin [Keflex] 500 mg PO Q6HR #40 cap 01/19/22 Allergies Allergy/AdvReac Type Severity Reaction Status Date / Time amoxicillin Allergy Rash/Hives/Shortness Verified 01/19/22 11:57 of Breath Review of Systems ROS Statement: Those systems with pertinent positive or pertinent negative responses have been documented in the HPI. ROS Other: All systems not noted in ROS Statement are negative. Past Medical History Past Medical History: COPD Additional Past Medical History / Comment(s): ovarian cyst, History of Any Multi-Drug Resistant Organisms: None Reported Past Surgical History: Appendectomy, Hernia Repair, Orthopedic Surgery Additional Past Surgical History / Comment(s): rt ankle, lumbar epidural, Past Anesthesia/Blood Transfusion Reactions: No Reported Reaction Past Psychological History: Anxiety Smoking Status: Never smoker Past Alcohol Use History: None Reported Past Drug Use History: None Reported - Past Family History Mother Family Medical History: Liver Disease, Renal Disease General Exam Limitations: no limitations General appearance: alert, in no apparent distress Head exam: Present: atraumatic, normocephalic, normal inspection Eye exam: Present: normal appearance, PERRL, EOMI. Absent: scleral icterus, conjunctival injection, periorbital swelling ENT exam: Present: normal exam, normal oropharynx, mucous membranes moist Neck exam: Present: normal inspection, full ROM. Absent: tenderness, meningismus, lymphadenopathy Respiratory exam: Present: normal lung sounds bilaterally. Absent: respiratory distress, wheezes, rales, rhonchi, stridor Cardiovascular Exam: Present: regular rate, normal rhythm, normal heart sounds. Absent: systolic murmur, diastolic murmur, rubs, gallop, clicks Extremities exam: Present: other (Left leg there is erythema from the proximal calf to mid thigh mild tenderness neurovascular intact) Course Vital Signs 01/19/22 10:58 Temperature 98.2 F Pulse Rate 78 Respiratory 18 Rate Blood Pressure 146/81 O2 Sat by Pulse 98 Oximetry Medical Decision Making - Medical Decision Making Ultrasound is negative for acute DVT. I just some slight concern for possible infection. Patient was started on oral antibiotics with the second 24 hours and return parameters were discussed. Disposition Clinical Impression: Left leg cellulitis Disposition: HOME SELF-CARE Condition: Stable Instructions (If sedation given, give patient instructions): Cellulitis (ED) Additional Instructions: Please return to the Emergency Department if symptoms worsen or any other concerns. Prescriptions: Cephalexin [Keflex] 500 mg PO Q6HR #40 cap Is patient prescribed a controlled substance at d/c from ED?: No Referrals: Reza Urban DO [Primary Care Provider] - 1-2 days Time of Disposition: 12:29
== END 2022-01-19 12:56 | disposition home or self-care (01) ==
LOC: EC 10:52
DX: L03.116 Cellulitis of left lower limb (principal); J44.9 Chronic obstructive pulmonary disease, unspecified; Z88.0 Allergy status to penicillin
CPT/HCPCS: 99283

== ENCOUNTER → 2022-05-01 | Outpatient (CLI) | payer OTHER ==
--- NOTE | 2022-05-01 14:56 | US ---
EXAMINATION TYPE: US venous doppler duplex LE LT DATE OF EXAM: 05/01/2022 2:41 PM COMPARISON: NONE CLINICAL HISTORY: M79.662 PAIN IN LEFT LOWER LEG. Swelling in left leg x 2 weeks SIDE PERFORMED: Left TECHNIQUE: The lower extremity deep venous system is examined utilizing real time linear array sonog amadeo with graded compression, doppler sonography and color-flow sonography. VESSELS IMAGED: Common Femoral Vein Deep Femoral Vein Greater Saphenous Vein * Femoral Vein Popliteal Vein Small Saphenous Vein * Proximal Calf Veins (* superficial vessels) Left Leg: Negative for DVT IMPRESSION: No evidence for DVT at this time.
== END | disposition home or self-care (01) ==
LOC: RADUSWWP 13:55
PROVIDERS: ATTEND Obstetrics & Gynecology
DX: O26.893 Other specified pregnancy related conditions, third trimester (principal); M79.662 Pain in left lower leg; Z3A.29 29 weeks gestation of pregnancy

== ENCOUNTER → 2022-05-01 | Outpatient (CLI) | payer OTHER ==
[2022-05-01 16:23] LABS: Glucose,Whole Blood 129 mg/dL (75-99)
[2022-05-01 18:42] VITALS: BP 121/80; PULSE 100; RESP 16; TEMP 98.4
--- NOTE | 2022-05-07 10:57 | P.MSEPDOC ---
Presenting Problems - Arrival Data Date of Arrival on Unit: 05/01/22 Time of Arrival on Unit: 15:51 Mode of Transport: Ambulatory - Complaint OB-Reason for Admission/Chief Complaint: Headache, Dizziness, Syncope/Fainting Spell Comment: pt states [place] [address]. drove her self here to be seen despite having approx 10 episodes of " blacking out" over last 11 days. first one was 10 min long Sunday was witnessed by her 10 year old who "caught her before she hit the ground" and said she did not move arms or legs or respond to questions.states she feels. episodes coming on with nausea, dizzyness, vision dims but still hears things happening around her while blacked out. Medical History - Information : 5 Para: 3 Term: 1 : 0 Abortions: Spontaneous or Elective: 1 Number of Living Children: 3 - Gestational Age Gestational Age by PAULINA (wks/days): 29 Weeks and 4 Days - History Comment: Dr Lopez notified of pts stated reason for visit "10 plus episodes of passing out over last 11days. first episiode was unconscious for 10 min but could hear. what was going on around her. has weird vision, dizziness,headache, nausea." had ultrasound of leg today after visit with dr moreno due to swelling in legs and weird. feeling in chest. vag deliveries, 29 /7. status cat 1. Review of Systems - Review of Systems Constitutional: No problems Breast: No problems ENT: No problems Cardiovascular: No problems Respiratory: No problems Gastrointestinal: No problems Genitourinary: No problems Musculoskeletal: No problems Neurological: Fainting, Dizziness Skin: No problems Vital Signs - Temperature Temperature: 98.4 F Temperature Source: Oral - Pulse Right Pulse Oximetery Pulse Rate: 100 Pulse Assessment Method: Pulse Oximetry - Respirations Respiratory Rate: 16 Oxygen Delivery Method: Room Air O2 Sat by Pulse Oximetry: 98 - Blood Pressure Right Arm Blood Pressure: 121/80 Blood Pressure Mean: 93 Blood Pressure Source: Automatic Cuff Physician Notification - Physician Notified Physician Notified Date: 05/01/22 Physician Notified Time: 17:00 Physician: Dr norwood New Order Received: Yes - Notification Comment Comment: Discharge Maternal Triage Index - Maternal Triage Index Presenting for scheduled procedure w/no complaint: No - Stat/Priority 1 Stat Priority 1: No - Urgent/Priority 2 Urgent Priority 2: No - Prompt/Priority 3 Prompt Priority 3: No - Non-Urgent/Priority 4 Non-Urgent Priority 4: Yes Criteria Met for Priority 4: pt reported "black out" episodes Disposition - Disposition OB Disposition: Discharge to home Discharge Date: 05/01/22 I agree with the RN Medical Screening Exam: Yes Physician's MSE Comment: I have neither seen nor examined the patient. Case reviewed; plan agreed upon as documented in EMR&OBIX.: Yes Diagnosis: RELATED CONDITIONS, UNSPECIFIED, THIRD TRIMESTER
== END | disposition home or self-care (01) ==
LOC: FBPOP 15:51
PROVIDERS: ATTEND Obstetrics & Gynecology
DX: Z53.9 Procedure and treatment not carried out, unspecified reason (principal)

== ENCOUNTER 2022-05-16 20:24 | Outpatient (CLI) | payer OTHER ==
[2022-05-16 22:56] VITALS: BP 124/67; PULSE 74; RESP 16; TEMP 98.5
--- NOTE | 2022-06-01 07:46 | P.MSEPDOC ---
Presenting Problems - Arrival Data Date of Arrival on Unit: 05/16/22 Time of Arrival on Unit: 20:24 Mode of Transport: Ambulatory - Complaint OB-Reason for Admission/Chief Complaint: Pain Comment: pt arrives to [facility] requesting to be seen in triage due to contractions. breathing heavily and panting. states has been having severe constant pain in lower abdomen all day but started having contractions at 6pm. States "this baby needs to comeout. I cant stay any longer". pt informed if baby delivered now she would need to be transfered [facility] and require a lot of support. she then states she doesnt want to deliver then. Medical History - Information : 5 Para: 3 Term: 3 : 0 Abortions: Spontaneous or Elective: 1 Number of Living Children: 3 - Gestational Age Gestational Age by PAULINA (wks/days): 31 Weeks and 5 Days - History Complications: Other Comment: pt being evaluated by cardiology for "passing out episodes" but states she has not "passed all the way out" since she was here last 05/01/22. Review of Systems - Review of Systems Constitutional: No problems Breast: No problems ENT: No problems Cardiovascular: No problems Respiratory: No problems Gastrointestinal: No problems Genitourinary: No problems Musculoskeletal: No problems Neurological: No problems Skin: No problems Vital Signs - Temperature Temperature: 98.5 F Temperature Source: Oral - Pulse Right Pulse Rate: 74 Pulse Assessment Method: Pulse Oximetry - Respirations Respiratory Rate: 16 Oxygen Delivery Method: Room Air O2 Sat by Pulse Oximetry: 99 - Blood Pressure Right Arm Blood Pressure: 124/67 Blood Pressure Mean: 86 Blood Pressure Source: Automatic Cuff Medical Screen Scoring - Cervical Exam Dilation (cm): 0 Effacement (%): 0 Station: 0 Membranes: Intact - Uterine Contractions Frequency From (mins): 0 Frequency To (mins): 0 Duration From (seconds): 0 Duration To (seconds): 0 Resting: Soft to palpation - Assessment - Baby A Baseline FHR: 140 Heart Rate - NICHD Category: Category I (Normal) NST: Reactive Physician Notification - Physician Notified Physician Notified Date: 05/16/22 Physician Notified Time: 21:35 Physician: Dr Leung New Order Received: (discharge) - Notification Comment Comment: Dr Leung updated with pts reason for visit ongoing lower abd pain, no contractions palpated or per toco. assessment including cat 1 fht. reactive nst,maternal vital signs stable, urine spec and ffn obtained but no symptoms of uti or PTL. Dr Leung advises not to send FFN or UA. pt is to be discharged. no intercourse, obtain abdominal support belt. follow up as scheduled Maternal Triage Index - Maternal Triage Index Presenting for scheduled procedure w/no complaint: No - Stat/Priority 1 Stat Priority 1: No - Urgent/Priority 2 Urgent Priority 2: No - Prompt/Priority 3 Prompt Priority 3: No - Non-Urgent/Priority 4 Non-Urgent Priority 4: Yes Criteria Met for Priority 4: presents with pain not contraction related. Disposition - Disposition OB Disposition: Physician follow up in office, Discharge to home Discharge Date: 05/16/22 Discharge Time: 22:35 I agree with the RN Medical Screening Exam: Yes Case reviewed; plan agreed upon as documented in EMR&OBIX.: Yes Diagnosis: FALSE LABOR BEFORE 37 COMPLETED WEEKS OF GEST, THIRD TRI
== END 2022-05-16 22:35 | disposition home or self-care (01) ==
LOC: FBPOP 20:24
PROVIDERS: ATTEND Obstetrics & Gynecology
DX: O47.03 False labor before 37 completed weeks of gestation, third trimester (principal); Z3A.31 31 weeks gestation of pregnancy
CPT/HCPCS: 59025; G0463; 99213

== ENCOUNTER 2022-06-16 21:15 | Outpatient (CLI) | payer OTHER ==
[2022-06-16 23:59] VITALS: BP 121/74; PULSE 87; RESP 18; TEMP 98.6
--- NOTE | 2022-07-07 08:25 | P.MSEPDOC ---
Presenting Problems - Arrival Data Date of Arrival on Unit: 06/16/22 Time of Arrival on Unit: 21:15 Mode of Transport: Ambulatory - Complaint OB-Reason for Admission/Chief Complaint: Possible Onset of Labor Comment: Pt states her cxns started yesterday at 0630. Medical History - Information : 5 Para: 3 Term: 3 : 0 Abortions: Spontaneous or Elective: 1 Number of Living Children: 3 - Gestational Age Gestational Age by PAULINA (wks/days): 36 Weeks and 1 Days Review of Systems - Review of Systems Constitutional: No problems Breast: No problems ENT: No problems Cardiovascular: No problems Respiratory: No problems Gastrointestinal: No problems Genitourinary: No problems Musculoskeletal: No problems Neurological: No problems Skin: No problems Vital Signs - Temperature Temperature: 98.6 F Temperature Source: Oral - Pulse Right Pulse Oximetery Pulse Rate: 87 Pulse Assessment Method: Pulse Oximetry - Respirations Respiratory Rate: 18 Oxygen Delivery Method: Room Air O2 Sat by Pulse Oximetry: 98 - Blood Pressure Right Arm Blood Pressure: 121/74 Blood Pressure Mean: 89 Blood Pressure Source: Automatic Cuff Medical Screen Scoring - Cervical Exam Dilation (cm): 1 Station: -2 Membranes: Intact - Uterine Contractions Frequency From (mins): 2 Frequency To (mins): 5 Intensity: Mild Resting: Soft to palpation - Assessment - Baby A Baseline FHR: 140 Heart Rate - NICHD Category: Category I (Normal) NST: Reactive Physician Notification - Physician Notified Physician Notified Date: 06/16/22 Physician Notified Time: 22:49 Physician: Riya De Leon Order Received: Yes - Notification Comment Comment: Patient arrived in triage and stated that. she has been having contractions since yesterday at. 0200 in the morning. Denies leaking of fluid and. denies bloody discharge. Pt states that she was placed on bedrest per. Dr. Leung from 05/29/22-06/11/22 d/t having a lot of. cxns, swelling, and hypotensive episodes. While she. was on bedrest, she states she felt better; now that. she is off bedrest, her pain has been increasing with. intensity. Pt's pain is primarily centralized to the. midline of her abdomen. RN discussed the possibility. of her abdominal muscles being stretched, thus. causing the pain as well. Pt is on her feet a lot during the day as. well. She does wear a belly support band most of the. day. 06/16/22 @ 8192: RN called Dr. De Leon and reported on. maternal/ status and history, Category 1 FHTs,. Reactive NST, Cxns Q2.5-5min, mild cxn palpated. intermittently. Cervix is 1cm and thick, remains the. same for re-check. RN may DC pt home with. instructions to drink lots of fluid and rest. Maternal Triage Index - Maternal Triage Index Presenting for scheduled procedure w/no complaint: No - Stat/Priority 1 Stat Priority 1: No - Urgent/Priority 2 Urgent Priority 2: No - Prompt/Priority 3 Prompt Priority 3: Yes Criteria Met for Priority 3: >34wks with contractions Disposition - Disposition OB Disposition: Discharge to home Discharge Date: 06/16/22 Discharge Time: 23:00 I agree with the RN Medical Screening Exam: Yes Case reviewed; plan agreed upon as documented in EMR&OBIX.: Yes Diagnosis: rule out labor
== END 2022-06-16 23:00 | disposition home or self-care (01) ==
LOC: FBPOP 21:15
PROVIDERS: ATTEND Obstetrics & Gynecology
DX: O26.893 Other specified pregnancy related conditions, third trimester (principal); Z3A.36 36 weeks gestation of pregnancy
CPT/HCPCS: 59025; G0463; 99213

== ENCOUNTER 2022-06-20 14:40 | Outpatient (CLI) | payer OTHER ==
[2022-06-20 17:17] VITALS: BP 121/67; PULSE 94; RESP 16; TEMP 98.1
--- NOTE | 2022-06-21 00:40 | P.MSEPDOC ---
Presenting Problems - Arrival Data Date of Arrival on Unit: 06/20/22 Time of Arrival on Unit: 14:47 Mode of Transport: Ambulatory - Complaint OB-Reason for Admission/Chief Complaint: Other Comment: pt arrived c/o contractions since sunday after vaginal exam but states they have been getting stronger. pt denies any leaking of fluid or bleeding Medical History - Information : 4 Para: 3 Term: 3 : 0 Abortions: Spontaneous or Elective: 0 Number of Living Children: 3 - Gestational Age Gestational Age by PAULINA (wks/days): 36 Weeks and 5 Days Review of Systems - Review of Systems Constitutional: No problems Breast: No problems ENT: No problems Cardiovascular: No problems Respiratory: No problems Gastrointestinal: No problems Genitourinary: No problems Musculoskeletal: No problems Neurological: No problems Skin: No problems Vital Signs - Temperature Temperature: 98.1 F Temperature Source: Oral - Pulse Right Brachial Pulse Rate: 94 Pulse Assessment Method: Automatic Cuff - Respirations Respiratory Rate: 16 Oxygen Delivery Method: Room Air - Blood Pressure Right Arm Blood Pressure: 121/67 Blood Pressure Mean: 85 Blood Pressure Source: Automatic Cuff Medical Screen Scoring - Cervical Exam Dilation (cm): 2 Effacement (%): 50 Station: -3 Membranes: Intact - Uterine Contractions Intensity: Mild Resting: Soft to palpation - Assessment - Baby A Baseline FHR: 140 Heart Rate - NICHD Category: Category I (Normal) Physician Notification - Physician Notified Physician Notified Date: 06/20/22 Physician Notified Time: 17:00 Physician: Dr Leung New Order Received: Yes - Notification Comment Comment: may discharge to home undelivered Maternal Triage Index - Prompt/Priority 3 Prompt Priority 3: Yes Criteria Met for Priority 3: pt 36 5/7 weeks gestation c/o contraction but denies any leaking of fluid Disposition - Disposition OB Disposition: Physician follow up in office, Discharge to home Discharge Date: 06/20/22 Discharge Time: 17:05 I agree with the RN Medical Screening Exam: Yes Case reviewed; plan agreed upon as documented in EMR&OBIX.: Yes Diagnosis: FALSE LABOR BEFORE 37 COMPLETED WEEKS OF GEST, THIRD TRI
== END 2022-06-20 17:10 | disposition home or self-care (01) ==
LOC: FBPOP 14:40
PROVIDERS: ATTEND Obstetrics & Gynecology
DX: O47.03 False labor before 37 completed weeks of gestation, third trimester (principal); Z3A.36 36 weeks gestation of pregnancy
CPT/HCPCS: 59025; G0463; 99213

== ENCOUNTER 2022-06-27 14:11 | Outpatient (CLI) | payer OTHER ==
[2022-06-27] MEDS ORDERED: ACETAMINOPHEN TAB 500 MG TAB PO STA (15:45)
[2022-06-27] MEDS: LACTATED RINGERS 1,000 ML IV SCH ×2 (15:59→16:29)
[2022-06-27 17:27] VITALS: BP 123/78; PULSE 87; RESP 20; TEMP 97.1
--- NOTE | 2022-06-30 08:51 | P.MSEPDOC ---
Presenting Problems - Arrival Data Date of Arrival on Unit: 06/27/22 Time of Arrival on Unit: 14:11 Mode of Transport: Ambulatory - Complaint OB-Reason for Admission/Chief Complaint: Possible Onset of Labor Comment: contractions since 0600 "every couple minutes" Medical History - Information : 5 Para: 3 Term: 3 : 0 Abortions: Spontaneous or Elective: 1 Number of Living Children: 3 - Gestational Age Gestational Age by PAULINA (wks/days): 37 Weeks and 2 Days Review of Systems - Review of Systems Constitutional: No problems Breast: No problems ENT: No problems Cardiovascular: No problems Respiratory: No problems Gastrointestinal: No problems Genitourinary: No problems Musculoskeletal: No problems Neurological: No problems Skin: No problems Vital Signs - Temperature Temperature: 97.1 F Temperature Source: Temporal Artery Scan - Pulse Pulse Oximetery Pulse Rate: 87 Pulse Assessment Method: Pulse Oximetry - Respirations Respiratory Rate: 20 Oxygen Delivery Method: Room Air O2 Sat by Pulse Oximetry: 98 - Blood Pressure Right Arm Blood Pressure: 123/78 Blood Pressure Mean: 93 Blood Pressure Source: Automatic Cuff Medical Screen Scoring - Cervical Exam Dilation (cm): 2 Effacement (%): 50 Station: -2 Membranes: Intact - Uterine Contractions Frequency From (mins): 1 Frequency To (mins): 5 Duration From (seconds): 40 Duration To (seconds): 70 Intensity: Moderate Resting: Soft to palpation - Assessment - Baby A Baseline FHR: 135 Heart Rate - NICHD Category: Category I (Normal) NST: Reactive Physician Notification - Physician Notified Physician Notified Date: 06/27/22 Physician Notified Time: 15:43 Physician: Kasey Leung New Order Received: Yes - Notification Comment Comment: Dr. Leung called, report given on maternal and status, c/o contractions [id number], NST reactive, 1 variable noted but otherwise moderate variability and accels. Pt is having large contractions every 2-3 mins and a lot of uterine irritability in between. Pt is crying with contractions and feels the irritability as well. Orders to start IV, give 1L LR, and 1,000mg of PO tylenol. Per Dr. Leung, pt can be rechecked in 1 hr "if clinically warranted" but if no change or contractions space out, pt is to be discharged home. 1621 - Dr. Leung updated on pt's status, contractions have decreased slightly in intensity but are still 2-3mins apart. Pt is no longer crying with contractions. Orders to recheck cervix and call back. 1628 - Dr. Leung updated on SVE (unchanged). Orders to give 2nd bag of LR then discharge pt home (no need to recheck cervix). Maternal Triage Index - Maternal Triage Index Presenting for scheduled procedure w/no complaint: No - Stat/Priority 1 Stat Priority 1: No - Urgent/Priority 2 Urgent Priority 2: No - Prompt/Priority 3 Prompt Priority 3: Yes Criteria Met for Priority 3: 37 2/7 weeks, contractions every 1-5 mins, pt crying with contractions Disposition - Disposition OB Disposition: Physician follow up in office, Discharge to home Discharge Date: 06/27/22 Discharge Time: 17:10 I agree with the RN Medical Screening Exam: Yes Case reviewed; plan agreed upon as documented in EMR&OBIX.: Yes Diagnosis: FALSE LABOR AT OR AFTER 37 COMPLETED WEEKS OF GESTATION
== END 2022-06-27 17:10 | disposition home or self-care (01) ==
LOC: FBPOP 14:11
PROVIDERS: ATTEND Obstetrics & Gynecology
DX: O47.1 False labor at or after 37 completed weeks of gestation (principal); Z3A.37 37 weeks gestation of pregnancy
CPT/HCPCS: 59025; 96360; 84112; G0463; 96361; 99214

== ENCOUNTER 2022-06-28 13:36 | Outpatient (CLI) | payer OTHER ==
[2022-06-28 15:14] VITALS: BP 116/79; PULSE 78; RESP 16; TEMP 97.9
--- NOTE | 2022-06-30 09:01 | P.MSEPDOC ---
Presenting Problems - Arrival Data Date of Arrival on Unit: 06/28/22 Time of Arrival on Unit: 13:36 Mode of Transport: Ambulatory - Complaint OB-Reason for Admission/Chief Complaint: Vaginal Bleeding Comment: pt presents to triage with complaints increased vag bleeding since she was here yesterday and continued contractions since yesterdays visit with right now they are feeling more "crampy with perineal pressure Medical History - Information : 5 Para: 3 Term: 3 : 0 Abortions: Spontaneous or Elective: 1 Number of Living Children: 3 - Gestational Age Gestational Age by PAULINA (wks/days): 37 Weeks and 6 Days - History Complications: No Care Review of Systems - Review of Systems Constitutional: No problems Breast: No problems ENT: No problems Cardiovascular: No problems Respiratory: No problems Gastrointestinal: No problems Genitourinary: No problems Musculoskeletal: No problems Neurological: No problems Skin: No problems Vital Signs - Temperature Temperature: 97.9 F Temperature Source: Oral - Pulse Right Pulse Rate: 78 Pulse Assessment Method: Automatic Cuff - Respirations Respiratory Rate: 16 Oxygen Delivery Method: Room Air O2 Sat by Pulse Oximetry: 98 - Blood Pressure Right Arm Blood Pressure: 116/79 Blood Pressure Mean: 91 Blood Pressure Source: Automatic Cuff Medical Screen Scoring - Cervical Exam Dilation (cm): 2 Station: -3 Membranes: Intact - Uterine Contractions Frequency From (mins): 3 Frequency To (mins): 9 Duration From (seconds): 30 Duration To (seconds): 50 Intensity: Mild Resting: Soft to palpation - Assessment - Baby A Baseline FHR: 135 Heart Rate - NICHD Category: Category I (Normal) NST: Reactive Physician Notification - Physician Notified Physician Notified Date: 06/28/22 Physician Notified Time: 14:45 Physician: Kasey Leung New Order Received: Yes - Notification Comment Comment: Dr Leung updated pts reason for visit increased bleeding since yesterday but no blood in underware and only scant amount brownish discharge on glove. Cat 1 FHT, maternal vitals WNL. Contractions irregular with pt stating they only feel like mild cramping compared to yesterday when they were painful. Cervix unchanged from yesterdays exam. discharge order received Maternal Triage Index - Maternal Triage Index Presenting for scheduled procedure w/no complaint: No - Stat/Priority 1 Stat Priority 1: No - Urgent/Priority 2 Urgent Priority 2: No - Prompt/Priority 3 Prompt Priority 3: No - Non-Urgent/Priority 4 Non-Urgent Priority 4: Yes Criteria Met for Priority 4: pt presents to triage with complaints increased vag bleeding since she was here yesterday and continued contractions since yesterdays visit with right now they are feeling more "crampy with perineal pressure Disposition - Disposition OB Disposition: Physician follow up in office, Discharge to home Discharge Date: 06/28/22 Discharge Time: 14:50 I agree with the RN Medical Screening Exam: Yes Case reviewed; plan agreed upon as documented in EMR&OBIX.: Yes Diagnosis: FALSE LABOR BEFORE 37 COMPLETED WEEKS OF GEST, THIRD TRI
== END 2022-06-28 14:50 | disposition home or self-care (01) ==
LOC: FBPOP 13:36
PROVIDERS: ATTEND Obstetrics & Gynecology
DX: O47.1 False labor at or after 37 completed weeks of gestation (principal); Z3A.37 37 weeks gestation of pregnancy
CPT/HCPCS: 59025; G0463; 99213

== ENCOUNTER 2022-06-30 14:29 | Inpatient (IN) | payer OTHER ==
[2022-06-30] MEDS ORDERED: LIDOCAINE 0.5% (PF) 5 MG/ML (50 ML SDV) SQ PRN (16:28)
[2022-06-30] MEDS ORDERED: TERBUTALINE 1 MG/ML VIAL SQ PRN (16:28)
[2022-06-30] MEDS ORDERED: OXYTOCIN 10 UNIT/ML 1 ML VIAL IM PRN (16:28)
[2022-06-30] MEDS ORDERED: METHYLERGONOVINE 0.2 MG/ML 1 ML AMP IM PRN (16:28)
[2022-06-30] MEDS ORDERED: CARBOPROST TROMETHAMINE 250 MCG/ML 1 ML AMP IM PRN (16:28)
[2022-06-30] MEDS ORDERED: OXYTOCIN 30 UNITS/500 ML NS 30 UNIT in SALINE 1 500ML.BAG IV SCH ×2 (16:30→23:30)
[2022-06-30] MEDS ORDERED: CLINDAMYCIN 900 MG in DEXTROSE 5% IN WATER 50 ML IVPB STA ×2 (16:45)
--- NOTE | 2022-06-30 16:47 | US ---
EXAMINATION TYPE: US OB limited DATE OF EXAM: 06/30/2022 COMPARISON: NONE CLINICAL HISTORY: 32-year-old female assess CULLEN, patient states water broke. EXAM PERFORMED: Transabdominal (TA) FINDINGS: GESTATIONAL AGE / DATING Physician Established: (38 weeks/1 days) EDC: 07/13/2022 No growth performed on today?s study per ordering physician SURVEY CULLEN: 12.2 cm Normal Ultrasound evidence of premature rupture of membranes? No HEART RATE: 155 bpm RHYTHM: Normal IMPRESSION: Limited OB ultrasound to assess CULLEN which is measured at 12.2 cm, within normal limits. heart r ate 155 BPM.
[2022-06-30 17:21] LABS: Basophils % (A) 0 %; Eosinophils # (A) 0.1 k/uL (0-0.7); Eosinophils % (A) 1 %; HGB 11.2 gm/dL (11.4-16.0); Hypochromasia Slight; Lymphocytes # (A) 1.4 k/uL (1.0-4.8); Lymphocytes % (A) 13 %; MCH 26.9 pg (25.0-35.0); MCHC 31.2 g/dL (31.0-37.0); MCV 86.5 fL (80.0-100.0); Mean Platelet Volume 9.7; Monocytes # (A) 0.4 k/uL (0-1.0); Monocytes % (A) 4 %; Neutrophils # (A) 8.6 k/uL (1.3-7.7); Neutrophils % (A) 81 %; Platelet Count 182 k/uL (150-450); RBC 4.16 m/uL (3.80-5.40); RDW 13.4 % (11.5-15.5); WBC 10.6 k/uL (3.8-10.6)
[2022-06-30] MEDS: LACTATED RINGERS 1,000 ML IV SCH ×3 (17:31→22:02)
[2022-06-30] MEDS ORDERED: PHENYLEPHRINE-0.9% NACL SYG 1,000 MCG/10 ML SYRINGE ONE (21:03)
[2022-06-30] MEDS ORDERED: ROPIVACAINE 5 MG/ML 20 ML AMPULE ONE (21:03)
[2022-06-30] MEDS ORDERED: fentaNYL (PF) 50 MCG/ML 5 ML AMP ONE (21:03)
[2022-06-30] MEDS ORDERED: SODIUM CHLORIDE 0.9% 100 ML BAG ONE (21:03)
[2022-06-30] MEDS ORDERED: diphenhydrAMINE 25 MG CAP PO PRN (23:28)
[2022-06-30] MEDS ORDERED: diphenhydrAMINE 50 MG/ML 1 ML VIAL IVP PRN ×2 (23:28)
[2022-06-30] MEDS ORDERED: HYDROCORTISONE 2.5% RECTAL CREAM 30 GM TUBE RECTAL PRN (23:28)
[2022-06-30] MEDS ORDERED: diphenhydrAMINE 50 MG CAP PO PRN (23:28)
[2022-06-30] MEDS ORDERED: ZOLPIDEM 5 MG TAB PO PRN (23:28)
[2022-06-30] MEDS ORDERED: BENZOCAINE/MENTHOL SPRAY 1 GM/SPRAY AEROSOL TOPICAL PRN (23:28)
[2022-06-30] MEDS ORDERED: SIMETHICONE 80 MG CHEWABLE PO PRN (23:28)
[2022-06-30] MEDS ORDERED: LANOLIN CREAM 5 GM TUBE TOPICAL PRN (23:28)
--- NOTE | 2022-06-30 23:33 | P.PROBDLV ---
Vaginal Delivery Note - . Vaginal Delivery Note: 32-year-old 5 para 3013 at 37-5/7 weeks, estimated due date of 828. Patient presents to labor and delivery with complaints of spontaneous rupture of membranes. Patient was noted to be ruptured and admitted to labor and delivery. Pitocin induction of labor was begun or she is GBS positive. IV antibiotics were given for prophylaxis for positive group beta strep culture. Patient progressed in labor eventually becoming uncomfortable and requesting epidural placement. Epidural was placed without difficulty by the anesthesia department. Amniotomy was performed as an additional membrane was palpated and clear fluid was obtained. Patient progressed through labor eventually becoming complete. Patient had a strong urge to push therefore she was placed in a modified lithotomy position and with excellent maternal effort had a normal spontaneous vaginal delivery of a viable female infant at 2315, weight of 7 lbs. 3 oz., Apgars of 9 and 9 at one and 5 minutes respectively. After two-minute delayed the local cord was doubly clamped and cut and the placenta was delivered spontaneously intact with a three-vessel cord being noted. The infant was placed on the maternal abdomen. Spontaneous cry was noted at . On inspection the patient's vaginal vault no vaginal lacerations were appreciated. All counts were noted be correct 2 within the delivery. Patient and tolerated delivery well and are resting comfortably.
--- NOTE | 2022-06-30 23:34 | P.HPOB ---
History of Present Illness H&P Date: 06/30/22 Chief Complaint: IUP at 37-5/7 weeks, spontaneous rupture of membranes This is a 32-year-old 5 para 3013 at 37-5/7 weeks that presents with complaints of rupture of membranes. Patient states she heard a pop early this afternoon and a gush of fluid that ran down her leg. Patient denies contractions. Patient presented to OB triage where positive amnio sure was neil reciated. Patient was receiving routine care which has been essentially uncomplicated. Blood type is known to be A+, rubella immune, hep Poppy surface antigen negative, HIV negative, RPR is nonreactive, group beta strep culture was positive. Review of Systems Constitutional: Denies chills, Denies fatigue, Denies fever Ears, nose, mouth and throat: Denies headache Cardiovascular: Reports leg edema Respiratory: Denies dyspnea Gastrointestinal: Denies constipation, Denies diarrhea, Denies nausea, Denies vomiting Genitourinary: Reports Past Medical History Past Medical History: COPD Additional Past Medical History / Comment(s): ovarian cyst, History of Any Multi-Drug Resistant Organisms: None Reported Past Surgical History: Appendectomy, Hernia Repair, Orthopedic Surgery Additional Past Surgical History / Comment(s): rt ankle, lumbar epidural, Past Anesthesia/Blood Transfusion Reactions: No Reported Reaction Past Psychological History: Anxiety Smoking Status: Never smoker Past Alcohol Use History: None Reported Past Drug Use History: None Reported - Past Family History Mother Family Medical History: No Reported History, Liver Disease, Renal Disease Medications and Allergies Home Medications Medication Instructions Recorded Confirmed Type Escitalopram [Lexapro] 15 mg PO DAILY 01/19/22 06/30/22 History [id number] Acid 1 cap PO DAILY 01/19/22 06/30/22 History [-U Capsule (formulary)] Allergies Allergy/AdvReac Type Severity Reaction Status Date / Time amoxicillin Allergy Rash/Hives/Shortness Verified 06/30/22 15:07 of Breath Exam Osteopathic Statement: *. No significant issues noted on an osteopathic structural exam other than those noted in the History and Physical/Consult. Vital Signs Temp Pulse Resp BP 06/30/22 18:37 97.3 F L 111 H 16 120/80 06/30/22 18:34 97.3 F L 111 H 14 120/80 Intake and Output 06/30/22 06/30/22 06/30/22 06:59 14:59 22:59 Other: Weight 99.79 kg Targeted physical exam is performed and state in general this a well-nourished well-developed female in no acute distress, breathing is noted to be nonlabored, heart has a regular rate and rhythm, abdomen is gravid and appropriate for gestational age, heart tones are noted to be category 1, she is el every 2-3 minutes, on cervical exam she is 4/70/-2 station clear fluid was appreciated yet and additional amniotic sac is appreciated therefore rupture of membranes is performed and clear fluid was obtained. Results Result Diagrams: 06/30/22 17:08 Abnormal Lab Results - Last 24 Hours (Table) 06/30/22 Range/Units 17:08 Hgb 11.2 L (11.4-16.0) gm/dL Neutrophils # 8.6 H (1.3-7.7) k/uL Assessment and Plan (1) with 37 or more completed weeks gestation Current Visit: Yes Status: Acute Code(s): OFX0354 - SNOMED Code(s): 70730687 (2) SROM (spontaneous rupture of membranes) Current Visit: Yes Status: Acute Code(s): SAP7562 - SNOMED Code(s): 518351363 (3) Positive GBS test Current Visit: Yes Status: Acute Code(s): B95.1 - STREPTOCOCCUS, GROUP B, CAUSING DISEASES CL[facility]SD [facility] SNOMED Code(s): 072056003 Plan: 32-year-old at 37-5/7 weeks presents with spontaneous rupture of membranes. Fluid was noted be clear in nature. Pitocin augmentation of labor is begun given group beta strep positive vaginal culture. Given her ALLERGY to ampicillin and clindamycin is begun. Patient is considering epidural. Anticipate spontaneous vaginal delivery.
[2022-07-01] MEDS ORDERED: CLINDAMYCIN 900 MG in DEXTROSE 5% IN WATER 50 ML IVPB SCH ×2 (00:30)
[2022-07-01] MEDS: IBUPROFEN 600 MG TAB PO SCH ×5 (03:36→23:13)
[2022-07-01] MEDS: SENNOSIDES-DOCUSATE SODIUM 1 EACH TAB PO SCH ×2 (08:01→19:46)
--- NOTE | 2022-07-01 08:40 | P.PNOBGVD ---
Subjective - Subjective Principal diagnosis: day #1 Interval history: Patient is doing well . She is ambulating and voiding without difficulty. She is bottle feeding. States her lochia is moderate. She denies concerns this morning. Patient reports: Reports appetite normal, Reports voiding normally, Reports pain well controlled, Reports ambulating normally [place]: doing well, bottle feeding Objective - Latest Vital Signs Latest vital signs: Vital Signs Temp Pulse Resp BP Pulse Ox 07/01/22 07:55 98.5 F 76 16 119/76 98 07/01/22 05:30 98.7 F 81 16 123/86 98 07/01/22 01:28 98.0 F 86 16 133/77 07/01/22 00:58 83 16 129/80 07/01/22 00:28 93 16 120/68 07/01/22 00:13 100 16 128/73 98 07/01/22 00:00 89 16 06/30/22 23:58 97.8 F 89 16 126/68 98 06/30/22 23:43 93 16 129/67 06/30/22 23:28 103 H 16 121/67 100 06/30/22 18:37 97.3 F L 111 H 16 120/80 06/30/22 18:34 97.3 F L 111 H 14 120/80 Intake and Output 06/30/22 07/01/22 07/01/22 22:59 06:59 14:59 Output Total 661 Balance -661 Output: Urine 100 Estimated Blood Loss 300 Output, Quantitative 261 Blood Loss Other: # Voids 3 0 Weight 99.79 kg - Exam Extremities: Present: normal, edema Abdomen: Present: normal appearance, soft Uterus: Present: normal, firm - Labs Labs: Abnormal Lab Results - Last 24 Hours (Table) 06/30/22 Range/Units 17:08 Hgb 11.2 L (11.4-16.0) gm/dL Neutrophils # 8.6 H (1.3-7.7) k/uL Assessment and Plan (1) with 37 or more completed weeks gestation Current Visit: Yes Status: Acute Code(s): [id number] - SNOMED Code(s): 12557063 (2) SROM (spontaneous rupture of membranes) Current Visit: Yes Status: Acute Code(s): TMC7507 - SNOMED Code(s): 458094922 (3) Positive GBS test Current Visit: Yes Status: Acute Code(s): B95.1 - STREPTOCOCCUS, GROUP B, CAUSING DISEASES CLASSD [facility] SNOMED Code(s): 943339749 (4) Status post normal vaginal delivery Current Visit: Yes Status: Acute Code(s): BZW7473 - SNOMED Code(s): 738066273 Plan: Patient is doing well . Plan to continue routine care and plan discharge home tomorrow.
[2022-07-01] MEDS: ACETAMINOPHEN TAB 325 MG TAB PO PRN ×2 (15:03→19:50)
[2022-07-02] MEDS: ACETAMINOPHEN TAB 325 MG TAB PO PRN (02:06)
[2022-07-02] MEDS: IBUPROFEN 600 MG TAB PO SCH ×2 (06:11→15:23)
[2022-07-02 08:09] VITALS: RESP 16
[2022-07-02] MEDS: SENNOSIDES-DOCUSATE SODIUM 1 EACH TAB PO SCH (08:12)
--- NOTE | 2022-07-02 11:02 | P.DS ---
Providers Date of admission: 06/30/22 16:19 Expected date of discharge: 07/02/22 Attending physician: Kasey Leung Primary care physician: Stated None - Discharge Diagnosis(es) (1) with 37 or more completed weeks gestation Current Visit: Yes Status: Acute (2) SROM (spontaneous rupture of membranes) Current Visit: Yes Status: Acute (3) Positive GBS test Current Visit: Yes Status: Acute (4) Status post normal vaginal delivery Current Visit: Yes Status: Acute Hospital Course: This is a 32 yo G5 now P4014 that presented to labor and delivery, at 37 5/7 weeks with SROM. She only noted irregular contractions at the time of admission. She was known GBS positive and clindamycin was administered as she does have an allergy to amoxicillin. She was begun on Pitocin for augmentation of labor. Patient progressed through labor eventually becoming uncomfortable requesting epidural placement. Epidural was placed without difficulty by the anesthesia . Amniotomy was performed as an additional membrane was palpated and clear fluid was obtained. Patient progressed through labor eventually becoming complete and had a strong urge to push. Patient was placed in the modified lithotomy position and with excellent maternal effort had a normal spontaneous vaginal delivery of a viable female infant at 2315, weight of 7 lbs. 3 oz. Apgars of 9 and 9 at one and 5 minutes respectively. Patient had no vaginal lacerations during delivery. Patient's course has been uneventful. On this day #2 she is ambulating and voiding without difficulty. She is tolerating regular diet without nausea or vomiting. She states her pain is well-controlled. She is ready for discharge home. Patient Condition at Discharge: Good Plan - Discharge Summary New Discharge Prescriptions: No Action Escitalopram [Lexapro] 15 mg PO DAILY Poj-Odbl-Qeacd Acid [-U Capsule (formulary)] 1 cap PO DAILY Discharge Medication List Escitalopram [Lexapro] 15 mg PO DAILY 01/19/22 [History] Wjo-Rmyo-Tizpe Acid [-U Capsule (formulary)] 1 cap PO DAILY 01/19/22 [History] Follow up Appointment(s)/Referral(s): Kasey Leung MD [STAFF PHYSICIAN] - 6 Weeks Patient Instructions/Handouts: Vaginal Delivery (GEN), Vaginal Delivery (DC) Discharge Disposition: HOME SELF-CARE
[2022-07-02 15:23] VITALS: BP 111/75; PULSE 76; TEMP 98.1
== END 2022-07-02 20:05 | disposition home or self-care (01) | DRG 807 ==
LOC: FBPOP 14:29 → 4FBP 16:19
PROVIDERS: ADMIT Obstetrics & Gynecology; ATTEND Obstetrics & Gynecology
PROC: 10E0XZZ Delivery of Products of Conception, External Approach (ICD-10-PCS; principal; 2022-06-30)
PROC: 10907ZC Drainage of Amniotic Fluid, Therapeutic from Products of Conception, Via Natural or Artificial Opening (ICD-10-PCS; 2022-06-30)
PROC: 4A0HXCZ Measurement of Products of Conception, Cardiac Rate, External Approach (ICD-10-PCS; 2022-06-30)
PROC: 3E033VJ Introduction of Other Hormone into Peripheral Vein, Percutaneous Approach (ICD-10-PCS; 2022-06-30)
DX: O99.824 Streptococcus B carrier state complicating childbirth (principal); Z37.0 Single live birth; F41.9 Anxiety disorder, unspecified; J44.9 Chronic obstructive pulmonary disease, unspecified; O99.344 Other mental disorders complicating childbirth; O99.52 Diseases of the respiratory system complicating childbirth; Z3A.37 37 weeks gestation of pregnancy; Z79.899 Other long term (current) drug therapy; Z88.0 Allergy status to penicillin; Z87.19 Personal history of other diseases of the digestive system
CPT/HCPCS: 59025; 76815; 84112; 85025; 86850; 86900; 86901; 99213

== ENCOUNTER 2022-08-17 10:27 | Emergency (ER) | payer OTHER ==
[2022-08-17 10:44] VITALS: TEMP 97.7
[2022-08-17] MEDS ORDERED: DEXAMETHASONE SOD PHOSPHATE 10 MG/ML 1 ML VIAL IV STA (12:38)
[2022-08-17] MEDS ORDERED: SODIUM CHLORIDE 0.9% 1,000 ML IV STA (12:38)
--- NOTE | 2022-08-17 12:45 | ED ---
Headache HPI - General Chief Complaint: Headache Stated Complaint: poss blood patch Time Seen by Provider: 08/17/22 12:25 Source: patient, RN notes reviewed, old records reviewed Mode of arrival: ambulatory Limitations: no limitations - History of Present Illness Initial Comments: 32-year-old well-appearing female presents to the emergency room with complaints of frontal headache for 6 weeks. Patient states that her headache started after having an epidural to deliver her baby. She states that she has not seen her primary care doctor regarding her headache. She states it is better when she is lying down and worse when she is sitting upright or walking. Denies any nausea, vomiting, diarrhea or fevers. She believes this is directly related to her epidural which is when her symptoms began. She does have a history of migraine headaches and has seen Dr. Harrington in the past who has given her occipital injections. She has also had daith piercings which have helped until her epidural. She states that this headache is frontal and she has no history of frontal headaches MD Complaint: headache -: week(s) (6) Onset Description: with exertion, other (when upright) Location: frontal Severity scale (1-10): 4 Quality: constant Consistency: constant Improves With: other (Laying down) Worsens With: exertion/activity, sitting/standing Treatments Prior to Arrival: none - Related Data Home Medications Medication Instructions Recorded Confirmed Escitalopram [Lexapro] 15 mg PO DAILY 01/19/22 08/17/22 Dextroamphetamine/Amphetamine 20 mg PO BID@0800,1200 08/17/22 08/17/22 [Adderall Xr 20 mg Capsule] Allergies Allergy/AdvReac Type Severity Reaction Status Date / Time amoxicillin Allergy Rash/Hives/Shortness Verified 08/17/22 13:04 of Breath Review of Systems ROS Statement: Those systems with pertinent positive or pertinent negative responses have been documented in the HPI. ROS Other: All systems not noted in ROS Statement are negative. Past Medical History Past Medical History: COPD Additional Past Medical History / Comment(s): ovarian cyst, History of Any Multi-Drug Resistant Organisms: None Reported Past Surgical History: Appendectomy, Hernia Repair, Orthopedic Surgery Additional Past Surgical History / Comment(s): rt ankle, lumbar epidural, Past Anesthesia/Blood Transfusion Reactions: No Reported Reaction Past Psychological History: Anxiety Smoking Status: Never smoker Past Alcohol Use History: None Reported Past Drug Use History: None Reported - Past Family History Mother Family Medical History: No Reported History, Liver Disease, Renal Disease General Exam Limitations: no limitations General appearance: alert, in no apparent distress Head exam: Present: atraumatic, normocephalic, normal inspection Eye exam: Present: normal appearance, EOMI. Absent: scleral icterus, conjunctival injection, periorbital swelling ENT exam: Present: mucous membranes moist Neck exam: Present: normal inspection, full ROM. Absent: tenderness, meningismus, lymphadenopathy Respiratory exam: Present: normal lung sounds bilaterally. Absent: respiratory distress, wheezes, rales, rhonchi, stridor, chest wall tenderness, accessory muscle use Cardiovascular Exam: Present: regular rate GI/Abdominal exam: Present: soft. Absent: distended, tenderness, guarding, rebound, rigid Extremities exam: Present: normal inspection, full ROM, normal capillary refill. Absent: tenderness Back exam: Present: normal inspection, full ROM. Absent: tenderness, CVA tenderness (R), CVA tenderness (L), muscle spasm, paraspinal tenderness, luma tebral tenderness, rash noted Neurological exam: Present: alert, oriented X3, CN II-XII intact Expanded Neurological exam: Present: other (Rapid hand movements intact) Patient oriented to: Present: person, place, time Speech: Present: fluid speech Cranial nerves: EOM's Intact: Normal, Gag Reflex: Normal, Tongue Deviation: Normal Cerebellar function: Finger to Nose: Normal, Heel to Land: Normal Motor strength exam: RUE: 5, LUE: 5, RLE: 5, LLE: 5 Eye Response: (4) open spontaneously Motor Response: (6) obeys commands Verbal Response: (5) oriented Zuly Total: 15 Psychiatric exam: Present: normal affect, normal mood Skin exam: Present: warm, dry, intact, normal color. Absent: cyanosis, diaphoretic, petechiae, pallor Course Vital Signs 08/17/22 08/17/22 10:41 14:18 Temperature 97.7 F Pulse Rate 73 80 Respiratory 20 18 Rate Blood Pressure 134/90 132/80 O2 Sat by Pulse 99 100 Oximetry Medical Decision Making - Medical Decision Making CT brain shows no evidence of intracranial hemorrhage, mass or midline shift. There is no evidence of aneurysm or vascular malformation. Internal carotid arteries are patent On physical exam she has no focal neurological deficits. Rapid hand movements are intact. Finger to nose and heel land is unremarkable. Gait is steady. Vital signs are stable. She is given IV fluids and Decadron in the emergency room. Patient instructed to follow up with her primary care doctor and neurology for continuation of care as this may be recurrence of migraine headaches. Take Tylenol and or Motrin as needed for pain or discomfort. She was also directed to keep a diary of her headaches including what she is doing at the time, how long they last and any other accompanying symptoms. She is agreeable to this plan of care. Case discussed with Dr. Marte. Disposition Clinical Impression: Headache Disposition: HOME SELF-CARE Condition: Good Instructions (If sedation given, give patient instructions): Acute Headache (ED) Additional Instructions: Follow-up with your primary care doctor and neurologist next week. Take Tylenol and/or Motrin as needed for pain. Return to emergency room with any new or concerning symptoms. Is patient prescribed a controlled substance at d/c from ED?: No Referrals: Reza Urban DO [Primary Care Provider] - 1-2 days Oni Reyes MD [STAFF PHYSICIAN] - 1-2 days Time of Disposition: 14:08
--- NOTE | 2022-08-17 13:43 | CT ---
EXAMINATION TYPE: CT brain wo con DATE OF EXAM: 08/17/2022 COMPARISON: None HISTORY: Headache since epidural [address] DLP: 2224.[address] of the brain was performed. The ventricles, basal cisterns and sulci overlying the cerebral convexities demonstrate a normal appe arance. There is no evidence for intracranial hemorrhage or sulcal effacement. No mass effects are seen. Osseous calvarium is intact. If symptoms persist consider MRI as clinically warranted. IMPRESSION: 1. No acute intracranial process is seen at this time.
--- NOTE | 2022-08-17 13:48 | CT ---
EXAMINATION TYPE: CT angio head DATE OF EXAM: 08/17/2022 COMPARISON: None HISTORY: Headache since epidural [address] DLP: 2224.7 combined mGycm CONTRAST: CTA [place] of [place] with 3-D reconstruction is performed and with IV Contrast, patient injected with 100ml mL of Isovue 370. Contrast CTA of the [place] of [place] was performed 3-D reconstruction imaging obtained at a separate workstation. Vertebrobasilar system as well as intracranial portions of the internal carotid arterie s and their major tributaries are patent. I do not see evidence for sizable aneurysm or vascular mal formation. Please note MRI provides greater sensitivity and specificity. Visualized brain appears g rossly unremarkable. IMPRESSION: No evidence for sizable aneurysm or vascular malformation.
[2022-08-17 14:19] VITALS: BP 132/80; PULSE 80; RESP 18
== END 2022-08-17 14:19 | disposition home or self-care (01) ==
LOC: EC 10:27
DX: R51.9 Headache, unspecified (principal); J44.9 Chronic obstructive pulmonary disease, unspecified; F41.9 Anxiety disorder, unspecified; Z88.0 Allergy status to penicillin; Z79.899 Other long term (current) drug therapy
CPT/HCPCS: 70496; 70450; 99284; 96374; J1100; Q9967

== ENCOUNTER → 2022-08-21 | Outpatient (CLI) | payer OTHER ==
[2022-08-21 17:55] LABS: Basophils # (A) 0.04 X 10*3/uL (0.00-0.10); Basophils % (A) 1.1 %; Eosinophils # (A) 0.07 X 10*3/uL (0.04-0.35); Eosinophils % (A) 1.9 %; HCT 38.4 % (37.2-46.3); HGB 11.6 g/dL (12.0-15.0); Immature Grans, Automated 0 %; Lymphocytes # (A) 1.87 X 10*3/uL (0.90-5.00); Lymphocytes % (A) 50.4 %; MCH 26.9 pg (27.0-32.0); MCHC 30.2 g/dL (32.0-37.0); MCV 89.1 fL (80.0-97.0); Monocytes # (A) 0.26 X 10*3/uL (0.20-1.00); NRBC Per 100 WBC 0 /100 WBCS (0.0-0.0); Neutrophils # (A) 1.47 X 10*3/uL (1.80-7.70); Neutrophils % (A) 39.6 %; Platelet Count 254 X 10*3/uL (140-440); RBC 4.31 X 10*6/uL (4.10-5.20); RDW 14.3 % (11.5-14.5); WBC 3.71 X 10*3/uL (4.50-10.00)
== END | disposition home or self-care (01) ==
LOC: LABPAT 10:39
PROVIDERS: ATTEND Obstetrics & Gynecology
DX: Z30.2 Encounter for sterilization (principal)
CPT/HCPCS: 85025

== ENCOUNTER 2022-09-12 09:14 | Day surgery (SDC) | payer OTHER ==
[2022-09-08 08:39] VITALS: BMI 30.9
[~2022-09-12 09:14] MED LIST: DEXAMETHASONE SOD PHOSPHATE 4 MG/ML 1 ML VIAL IV ONE; LACTATED RINGERS 1,000 ML IV SCH; LIDOCAINE 1% (10MG/ML) FOR IV START INTRADERMA PRN; ONDANSETRON 4 MG/2 ML VIAL IVP ONE; Pre Op ABX Message 1 EACH MISC MISCELLANE ONE; SCOPOLAMINE 1 MG/72 HR PATCH TRANSDERM ONE
[2022-09-12] MEDS ORDERED: SUCCINYLCHOLINE CHLORIDE 200 MG/10 ML VIAL IV ONE (12:26)
[2022-09-12] MEDS ORDERED: GLYCOPYRROLATE 0.2 MG/ML 2 ML VIAL ONE (12:26)
[2022-09-12] MEDS ORDERED: NEOSTIGMINE 1 MG/ML 10 ML VIAL ONE (12:26)
[2022-09-12] MEDS ORDERED: LIDOCAINE 2% INJ 20 MG/ML (2 ML VIAL) ONE (12:26)
[2022-09-12] MEDS ORDERED: ROCURONIUM 10 MG/ML (5 ML VIAL) IV ONE (12:26)
[2022-09-12] MEDS ORDERED: KETOROLAC 15 MG/ML 1 ML VIAL ONE (12:26)
[2022-09-12] MEDS ORDERED: MIDAZOLAM 2 MG/2 ML VIAL ONE (12:26)
[2022-09-12] MEDS ORDERED: fentaNYL (PF) 50 MCG/ML 2 ML AMP ONE (12:26)
[2022-09-12] MEDS ORDERED: PROPOFOL 10 MG/ML 20 ML VIAL IV ONE (12:26)
[2022-09-12] MEDS ORDERED: BUPIVACAINE (PF) 0.25% 30 ML VIAL SQ ONE ×2 (12:58)
[2022-09-12] MEDS ORDERED: SILVER NITRATE APPLICATOR 1 EACH STICK..EA. TOPICAL ONE (13:04)
--- NOTE | 2022-09-12 13:08 | P.OP ---
Date of Procedure: 09/12/22 Preoperative Diagnosis: Undesired fertility Postoperative Diagnosis: Same, normal-appearing female pelvis Procedure(s) Performed: Laparoscopic tubal ligation with Filshie clips Anesthesia: NEY Surgeon: Kasey Leung Estimated Blood Loss (ml): 5 IV fluids (ml): 600 Urine output (ml): 300 Pathology: none sent Condition: stable Disposition: PACU Description of Procedure: Patient is brought to the [facility] and suite where a general anesthetic is this without difficulty. She's placed in the dorsal lithotomy position. The cervix, vagina, perineal body and abdomen are all prepped and draped in usual sterile fashion. Urine hCG is negative. Appropriate timeout is performed to assure proper patient and procedural identification. The bladder is drained for approximately 300 mL of clear yellow urine. Speculum was placed into the vagina, anterior lip of the cervix is grasped with tenaculum, medium acorn clamp is placed and attached to the tenaculum. Instrumentation is removed from the vagina. Attention is now drawn to the abdominal wall. A small infraumbilical incision is made, received was placed and placement is checked with hanging drop technique. Abdomen is insufflated under low filling pressures 4-6 mmHg for a total of 3.5 L of CO2 gas. Veress needle was removed. Trochars placed and placement is noted to be atraumatic. A second incision is made suprapubically and a second trocar placed under direct visualization, atraumatic entry. The right fallopian tube is visualized in its entirety to the fimbriated end. Filshie clip is placed in the isthmic portion of the tube with care to traverse the entire diameter of the tube into the mesal salpinx. Application is excellent. Sutures carried out contralaterally, again the fimbriated end of the left tube is visualized and the clip is placed in the isthmic portion through the tubal diameter into the mesal salpinx. Bilateral ovaries appear normal. No evidence of pelvic endometriosis or adhesions. The remaining anatomic survey is within normal limits. CO2 gas was allowed to diffuse. Instruments are removed under direct visualization and the fascial defects are clean and dry. 4-0 undyed Monocryl is used for final subcuticular skin closure. Steri-Strips and Mastisol are applied to the wounds after they are injected with quarter percent Marcaine without epinephrine, total of 8 mL used. Instrumentation is removed from the vagina. All sponge needle and enhancement counts are correct. Cervix is clean and dry. Patient is brought back to the recovery room in very good condition with stable vital signs including blood pressure 126/62, pulse 96. She'll follow-up with me in the office in 2 weeks. Toradol is given prior to leaving the operative suite.
[2022-09-12 13:23] VITALS: TEMP 97.1
[2022-09-12] MEDS: HYDROmorphone 0.5 MG/0.5 ML SYRINGE IVP PRN ×2 (13:31→13:42)
[2022-09-12] MEDS ORDERED: LACTATED RINGERS 1,000 ML IV ONE (13:43)
[2022-09-12] MEDS ORDERED: ONDANSETRON 4 MG/2 ML VIAL IVP ONE (14:30)
[2022-09-12] MEDS ORDERED: HYDROcodone/APAP 5-325MG 1 EACH TAB PO ONE (14:35)
[2022-09-12] MEDS ORDERED: ONDANSETRON 4 MG/2 ML VIAL ONE (14:36)
[2022-09-12] MEDS ORDERED: HYDROcodone/APAP 5-325MG 1 EACH TAB ONE (14:36)
[2022-09-12 14:44] VITALS: RESP 18
[2022-09-12 15:17] VITALS: BP 135/78; PULSE 58
== END 2022-09-12 15:39 | disposition home or self-care (01) ==
LOC: OR 09:14
PROVIDERS: ATTEND Obstetrics & Gynecology
DX: Z30.2 Encounter for sterilization (principal); J45.909 Unspecified asthma, uncomplicated; Z79.899 Other long term (current) drug therapy; Z98.890 Other specified postprocedural states
CPT/HCPCS: 81025; 58671; J2250; J0330; J1100; J2710; J2405; J3010; J1885; J2704; J1170; J2001